=== PATIENT | male | born 1970 | race Caucasian/White ===

== ENCOUNTER 2017-11-07 13:35 | Outpatient (CLI) | payer MEDICARE, MEDICAID ==
[~2017-11-07 13:35] MED LIST: AMYL1CAP55 PO; CLON-529 PO; FAMO40TA73 PO; FOLI0.4T2 PO; GABA-532 PO; METO-292 PO; MILK140C PO; NOVRI IV; ROPI1TAB2 PO; ROPI1TAB4 PO; SODI650T29 PO; SPIR25TA3 PO; THIA100T70 PO
== END 2017-11-07 23:59 | disposition home or self-care (01) ==
LOC: 64 CT 13:35
PROVIDERS: ATTEND Nurse Practitioner Family
DX: I10 Essential (primary) hypertension (principal); E11.9 Type 2 diabetes mellitus without complications; F17.200 Nicotine dependence, unspecified, uncomplicated; Z91.89 Other specified personal risk factors, not elsewhere classified
CPT/HCPCS: 70450

== ENCOUNTER 2021-05-03 10:17 | Emergency (ER) | payer MEDICARE, MEDICAID ==
[~2021-05-03] VITALS: Ht 177.8 cm; Wt 61.4 kg
[~2021-05-03 10:17] MED LIST changes: -FOLI0.4T2 PO; +FOLI0.4T6 PO; +MILK THISTLE140 M1 PO; -MILK140C PO; -ROPI1TAB4 PO; +ROPI1TAB6 PO; -SPIR25TA3 PO; +SPIR25TA5 PO
[2021-05-03] MEDS ORDERED: ketorolac tromethamine 15mg/ml inj. IM ONE (10:35)
[2021-05-03] MEDS ORDERED: HYDROcodone/acetaminophen 10/325mg tab PO ONE (10:35)
[2021-05-03] MEDS ORDERED: OXYC-145 PO (11:14)
[2021-05-03 12:15] VITALS: BP 134/83
== END 2021-05-03 12:17 | disposition home or self-care (01) ==
LOC: ER 10:17
DX: M54.41 Lumbago with sciatica, right side (principal); I10 Essential (primary) hypertension; J44.9 Chronic obstructive pulmonary disease, unspecified; G89.29 Other chronic pain; Z87.01 Personal history of pneumonia (recurrent); Z86.19 Personal history of other infectious and parasitic diseases; Z72.89 Other problems related to lifestyle; Z56.0 Unemployment, unspecified; Z79.899 Other long term (current) drug therapy; Z88.5 Allergy status to narcotic agent; Z79.4 Long term (current) use of insulin
CPT/HCPCS: 96372; 99283; J1885

== ENCOUNTER 2023-07-19 19:11 | Inpatient (IN) | payer MEDICARE, MEDICAID ==
[~2023-07-19] VITALS: Ht 175.3 cm; Wt 67.5 kg
[~2023-07-19 19:11] MED LIST changes: +OXYC-145 PO; +ROPI1TAB47 PO; -ROPI1TAB6 PO
[2023-07-19] MEDS ORDERED: ringers solution, lacted 1,000 ML IV ONE ×2 (20:10→20:35)
--- NOTE | 2023-07-19 21:19 | NUR ---
temp sensing michael started, pt in a eleazar huggar. VSS. warm fluid initiated, pt connected to tele monitor.
--- NOTE | 2023-07-19 21:20 | NUR ---
POC 90
[2023-07-19 21:24] LABS: URINE AMPHETAMINE SCREEN NEGATIVE (Neg); URINE BARBITUATE SCREEN NEGATIVE (Neg); URINE BENZODIAZEPINES SCREEN NEGATIVE (Neg); URINE CANNABINOID SCREEN NEGATIVE (Neg); URINE COCAINE SCREEN NEGATIVE (Neg); URINE METHADONE SCREEN NEGATIVE (Neg); URINE OPIATE SCREEN NEGATIVE (Neg); URINE PHENCYCLIDINE SCREEN NEGATIVE (Neg)
--- NOTE | 2023-07-19 21:27 | NUR ---
warm fluids complete, BP wnl
--- NOTE | 2023-07-19 21:28 | NUR ---
Per MD, BP goal above 90/60 or/and MAP 65
[2023-07-19] MEDS ORDERED: Dextrose 10%-water IV solution 1,000 ML IV SCH (21:40)
[2023-07-19 21:43] LABS: APTT 46 SECONDS (22-32); BASOPHILS # (AUTO) 0.1 X10'3 (0-0.2); BASOPHILS % (AUTO) 0.5 % (0-1); EOSINOPHILS # (AUTO) 0.1 X10'3 (0-0.9); EOSINOPHILS % (AUTO) 0.6 % (0-6); HEMATOCRIT 23.2 % (42.0-52.0); HEMOGLOBIN 7.4 g/dl (14.0-17.9); INR 1.3 INR; LYMPHOCYTES % (AUTO) 4.6 % (21-51); MEAN CORPUSCULAR HEMOGLOBIN 30.1 PG (27.0-31.0); MEAN CORPUSCULAR VOLUME 93.8 FL (78-98); MEAN PLATELET VOLUME 8.9 FL (7.4-10.4); MONOCYTES # (AUTO) 1.2 X10'3 (0-0.9); MONOCYTES % (AUTO) 5.4 % (2-12); NEUTROPHILS # (AUTO) 19.8 X10'3 (1.8-7.7); NEUTROPHILS % (AUTO) 88.9 % (42-75); PLATELET COUNT 320 X10'3 (140-440); PROTHROMBIN TIME 13.3 SECONDS (9.0-12.0); RED BLOOD COUNT 2.47 X10'6 (4.70-6.10); RED CELL DISTRIBUTION WIDTH 13.5 % (11.5-14.5); WHITE BLOOD COUNT 22.2 X10'3 (4.5-11.0)
[2023-07-19 21:50] LABS: ALANINE AMINOTRANSFERASE 13 U/L (12-78); ALBUMIN/GLOBULIN RATIO 0.5 (1.1-1.5); ALKALINE PHOSPHATASE 157 IU/L (46-116); ANION GAP 18 (8-16); ASPARTATE AMINO TRANSFERASE 28 U/L (10-37); BILIRUBIN,TOTAL 0.2 MG/DL (0.1-1.0); BLOOD UREA NITROGEN 92 MG/DL (7-18); BUN/CREATININE RATIO 11.9 (10.0-20.0); CALCIUM 7.8 MG/DL (8.5-10.1); CHLORIDE 104 MMOL/L (99-107); ETHANOL < 10 MG/DL (<10); GLUCOSE 97 MG/DL (70-104); POTASSIUM 4.2 MMOL/L (3.5-5.1); SODIUM 131 MMOL/L (135-145); eCRCL 9 ML/MIN; eGFR 7 ML/MIN
[2023-07-19] MEDS ORDERED: ringers solution, lactated 1000ml IV soln IV ONE (22:30)
[2023-07-19 22:37] LABS: ABG BASE EXCESS -19.1 mmol/L (-2.0-2.0); ABG OXYGEN SATURATION 88.6 % (94-97); ABG PCO2 (T) 22.9 mmHg (35.0-48.0); ALLEN'S TEST Modified; FCOHb 0.2 % (0.0-3.9); FHHb 11.3 % (0.0-5.0); FMetHb 0.3 % (0.0-1.5); FO2Hb 88.2 % (94-97); PATIENT TEMPERATURE 36.5; TOTAL HEMOGLOBIN 8.1 G/dl (14.0-17.9)
[2023-07-19] MEDS ORDERED: sodium bicarbonate (8.4%) 1 mEq/ml syringe IV ONE (23:00)
[2023-07-19] MEDS ORDERED: NORepinephrine 8mg/ 250ml NS 250 ML IV ONE (23:30)
[2023-07-20] MEDS ORDERED: sodium bicarbonate (8.4%) inj. 150 MEQ in dextrose 5%-water 1,000 ML IV SCH (00:35)
[2023-07-20 00:42] LABS: PLATELET ESTIMATE NORMAL; TOTAL CELLS COUNTED 100
[2023-07-20 00:46] LABS: SALICYLATE 2.1 MG/DL (4.0-20.0)
[2023-07-20 00:56] LABS: ACETAMINOPHEN < 2.0 UG/ML (10-30); OSMOLALITY 310 MOSM/K (280-300)
[2023-07-20] MEDS ORDERED: iohexol 300mg/ml 100ml inj. ONE (01:03)
[2023-07-20 04:43] LABS: BILIRUBIN,URINE NEGATIVE (Neg); CLARITY,URINE SLIGHTLY CLOUDY (Clear); COLOR,URINE STRAW (Yellow); GLUCOSE, URINE 100 mg/dl (Neg); KETONES,URINE NEGATIVE (Neg); LEUKOCYTE ESTERASE ,URINE TRACE (Neg); NITRITES, URINE NEGATIVE (Neg); OCCULT BLOOD,URINE MODERATE (Neg); PROTEIN,URINE 30 mg/dl (Neg); UROBILINOGEN,URINE 0.2 E.U/dL (0.2-1.0)
[2023-07-20 04:49] LABS: UA COLLECTION TYPE NON-SPECIFIED
[2023-07-20 04:52] LABS: ALBUMIN 1.8 G/DL (3.4-5.0); ANION GAP 19 (8-16); BLOOD UREA NITROGEN 89 MG/DL (7-18); BUN/CREATININE RATIO 11.5 (10.0-20.0); CALCIUM 7.3 MG/DL (8.5-10.1); CHLORIDE 99 MMOL/L (99-107); CREATININE 7.76 MG/DL (0.60-1.10); GLUCOSE 295 MG/DL (70-104); POTASSIUM 3.7 MMOL/L (3.5-5.1); SODIUM 129 MMOL/L (135-145); eCRCL 8 ML/MIN; eGFR 7 ML/MIN
[2023-07-20 04:52] LABS: BACTERIA,URINE FEW /HPF (Neg)
[2023-07-20 04:53] LABS: HYALINE CASTS 0-3 /LPF (NEGATIVE); MUCUS STRANDS NONE SEEN /LPF (Neg); RENAL CELLS, URINE FEW /HPF; SQUAMOUS EPITHELIAL CELL,UR FEW /LPF (FEW); TRANSITIONAL EPI CELLS,URINE FEW /HPF
[2023-07-20 04:54] LABS: WBC,URINE 0-4 /HPF (0-4)
[2023-07-20 04:58] LABS: TOTAL CARBON DIOXIDE 11.4 MMOL/L (24-32)
--- NOTE | 2023-07-20 05:19 | NUR ---
BiCarb lowered to 75 mL/hr and D10 stopped per MD Fernandez per tele phone.
[2023-07-20] MEDS: sodium bicarbonate (8.4%) inj. 150 MEQ in dextrose 5%-water 1,000 ML IV SCH ×3 (05:30→15:58)
--- NOTE | 2023-07-20 06:26 | NUR ---
pt sister Christi called, she requested an update on the patient, rishabh segundo informed her that the RN was currently in the middle of report but that the RN would be informed and her number would be placed in the chart to be called back. Christi:
[2023-07-20] MEDS ORDERED: levoFLOXACIN-Levaquin 250mg/D5 50 ML IV ONE (08:00)
[2023-07-20] MEDS ORDERED: succinylcholine 20mg/ml inj IV ONE (08:00)
[2023-07-20] MEDS ORDERED: etomidate 2mg/ml inj. ONE (08:00)
[2023-07-20] MEDS ORDERED: normal saline 1000ml 1,000 ML IV SCH (08:00)
[2023-07-20] MEDS ORDERED: mag hydrox/Alum hydrox/simeth 30ml oral suspension PO PRN (08:30)
[2023-07-20] MEDS ORDERED: magnesium Cl slow-release 64mg tablet PO PRN (08:30)
[2023-07-20] MEDS ORDERED: magnesium hydroxide 30ml (MOM) UD suspension PO PRN (08:30)
[2023-07-20] MEDS ORDERED: magnesium 2GM in 50ml NS 50 ML IV PRN (08:30)
[2023-07-20] MEDS ORDERED: ondansetron/PF 4mg/2ml inj IV PRN (08:30)
[2023-07-20] MEDS ORDERED: acetaminophen 325mg tablet PO PRN ×2 (08:30)
[2023-07-20] MEDS ORDERED: potassium Cl 20 mEq SR tablet PO PRN ×2 (08:30)
[2023-07-20] MEDS ORDERED: vancomycin/NS 1 GM ADD-VANTAGE 250 ML X 1 DOSE IV ONE (08:30)
[2023-07-20] MEDS ORDERED: magnesium 4gm in 100ml NS 100 ML IV PRN (08:30)
[2023-07-20] MEDS ORDERED: vancomycin/NS 1 GM ADD-VANTAGE 250 ML X 1 DOSE IV PRN (08:55)
--- NOTE | 2023-07-20 09:59 | NUR ---
SISTER PARK CALLED AGAIN TO TALK TO RN ABOUT PT, RN INFORMED, CAMERON TOLD SISTER THE RN WOULD HAVE TO CALL BACK SHE IS BUSY.
--- NOTE | 2023-07-20 10:17 | NUR ---
Received order for consult. Met with patient in regards to substance use and to see if patient is interested in resources for treatment options. Patient uses meth every once in a while and knows that it's not good. Patient is going to find different coping skills when depressed. Patient declined other resources at this time.
[2023-07-20] MEDS: piperacillin/tazo 4.5gm/100ml 100 ML IV SCH ×3 (10:37→19:17)
--- NOTE | 2023-07-20 11:15 | NUR ---
pt mother at bedside conversing with patient.
--- NOTE | 2023-07-20 12:00 | NUR ---
pt mother at bedside. pt eating lunch. 2l nc o2 sat at 95%
[2023-07-20] MEDS ORDERED: DEXTROSE 15 GM of carb/4 tabs (each vial/BOTTLE has 4 tablets) PO PRN ×2 (12:30)
[2023-07-20] MEDS ORDERED: dextrose 50%-water 50ml dispensing syringe IV PRN ×2 (12:30)
[2023-07-20] MEDS ORDERED: MESSAGE TO PHARMACY PO ONE (12:30)
[2023-07-20] MEDS ORDERED: glucagon, human recombinant 1mg kit SUBCUT PRN (12:30)
--- NOTE | 2023-07-20 12:57 | NUR ---
sister randy called again, RN notified.
[2023-07-20 13:27] LABS: ALBUMIN 1.9 G/DL (3.4-5.0); ANION GAP 16 (8-16); BLOOD UREA NITROGEN 87 MG/DL (7-18); BUN/CREATININE RATIO 11.2 (10.0-20.0); CALCIUM 7.1 MG/DL (8.5-10.1); CHLORIDE 99 MMOL/L (99-107); GLUCOSE 347 MG/DL (70-104); SODIUM 129 MMOL/L (135-145); eCRCL 8 ML/MIN; eGFR 7 ML/MIN
[2023-07-20 13:31] LABS: CREATINE KINASE 324 U/L (39-308); PHOSPHORUS 8.1 MG/DL (2.3-4.5)
[2023-07-20 13:39] LABS: TOTAL CARBON DIOXIDE 13.6 MMOL/L (24-32)
--- NOTE | 2023-07-20 13:48 | NUR ---
Dr. Delphine Miranda notified of pt critical ECO2 of 13.1. no new orders given.
[2023-07-20 14:10] LABS: C DIFF ANTIGEN NEGATIVE (NEGATIVE); C DIFF SPECIMEN=DIARRHEA? ACCEPTABLE; C DIFFICILE TOXINS A&B NEGATIVE (Neg)
[2023-07-20] MEDS: insulin Lispro (HumaLOG) vial - multi-dose SQ SCH (14:30)
--- NOTE | 2023-07-20 16:41 | NUR ---
PT HAS HAD 4 EPISODES OF WATERY STOOLS. PT REPORTS THAT THIS HAS BEEN ONGOING FOR MONTHS. STOOL WAS TESTED AND IS NEGATIVE FOR C-DIFF. PT CURRENTLY RESTING IN BED ON 2L NC O2 SAT AT 94%. BICARB IS INFUSING AT 75ML/HR.
--- NOTE | 2023-07-20 17:55 | NUR ---
contacted dr buck nunez about pt eco2 and that an abg has not been ran since yesterday. ordered for abg and said to continue on the 2l nc.
[2023-07-20 18:48] LABS: ABG HCO3 12.7 mmol/L (22.0-26.0); ABG OXYGEN SATURATION 91.8 % (94-97); ABG PCO2 (T) 24.7 mmHg (35.0-48.0); ABG PH (T) 7.328 (7.340-7.440); ABG PO2 (T) 65.2 mmHg (75.0-100.0); FCOHb 0.2 % (0.0-3.9); FHHb 8.2 % (0.0-5.0); FLOW 2 L/min; FMetHb 0.3 % (0.0-1.5); FO2Hb 91.3 % (94-97); MODE NASAL CANNULA; PATIENT TEMPERATURE 37.2; TOTAL HEMOGLOBIN 7.6 G/dl (14.0-17.9)
[2023-07-20] MEDS ORDERED: haloperidol 5mg tablet PO PRN (19:15)
[2023-07-20] MEDS ORDERED: haloperidol lactate 5mg/ml inj IM PRN (19:15)
[2023-07-20] MEDS ORDERED: UNABLE TO OBTAIN (19:23)
[2023-07-20] MEDS: K and/or MAG REPLACEMENT MC SCH (20:51)
[2023-07-20] MEDS: heparin, porcine 5000 units/ml vial SQ SCH (21:16)
[2023-07-20] MEDS: thiamine 100mg/ml 2ml inj. IV SCH (21:18)
[2023-07-20] MEDS: insulin glargine (Lantus) pen - multi-dose SQ SCH (21:18)
[2023-07-21] MEDS: sodium bicarbonate (8.4%) inj. 150 MEQ in dextrose 5%-water 1,000 ML IV SCH ×3 (00:16→22:13)
[2023-07-21] MEDS: piperacillin/tazo 4.5gm/100ml 100 ML IV SCH ×4 (00:20→23:54)
[2023-07-21] MEDS ORDERED: acetaminophen 325mg tablet PO STA (00:44)
[2023-07-21] MEDS: VANCOMYCIN LEVEL IV SCH (05:39)
[2023-07-21] MEDS ORDERED: furosemide 20 MG/2 ML vial IV ONE (06:30)
[2023-07-21] MEDS: K and/or MAG REPLACEMENT MC SCH ×2 (07:07→20:00)
[2023-07-21] MEDS: folic acid 1mg/0.2ml inj IV SCH (07:25)
[2023-07-21] MEDS: thiamine 100mg/ml 2ml inj. IV SCH ×3 (07:25→20:34)
[2023-07-21] MEDS: heparin, porcine 5000 units/ml vial SQ SCH ×2 (07:25→20:33)
[2023-07-21] MEDS: multivitamins, therapeutics tablet PO SCH (07:26)
[2023-07-21 08:04] LABS: ABG BASE EXCESS -11.6 mmol/L (-2.0-2.0); ABG HCO3 12.8 mmol/L (22.0-26.0); ABG OXYGEN SATURATION 92.1 % (94-97); ABG PCO2 (T) 23.8 mmHg (35.0-48.0); ABG PH (T) 7.348 (7.340-7.440); ABG PO2 (T) 67.5 mmHg (75.0-100.0); ALLEN'S TEST POSITIVE; FCOHb 0.3 % (0.0-3.9); FHHb 7.9 % (0.0-5.0); FLOW 7 L/min; FMetHb 0.1 % (0.0-1.5); FO2Hb 91.7 % (94-97); MODE MASK - NRB; TOTAL HEMOGLOBIN 7.6 G/dl (14.0-17.9)
[2023-07-21] MEDS: insulin Lispro (HumaLOG) vial - multi-dose SQ SCH (08:49)
--- NOTE | 2023-07-21 09:00 | NUR ---
at bedside with patient, multiple episodes of diarrhea during linen change.
[2023-07-21] MEDS: LORazepam 2 mg/ml vial IV PRN ×3 (09:06→20:34)
--- NOTE | 2023-07-21 09:10 | NUR ---
hospitalist at bedside with resident.
[2023-07-21 09:24] LABS: BASOPHILS # (AUTO) 0.1 X10'3 (0-0.2); BASOPHILS % (AUTO) 0.5 % (0-1); EOSINOPHILS # (AUTO) 0.1 X10'3 (0-0.9); EOSINOPHILS % (AUTO) 0.5 % (0-6); HEMOGLOBIN 7.1 g/dl (14.0-17.9); LYMPHOCYTES # (AUTO) 0.7 X10'3 (1.1-4.8); LYMPHOCYTES % (AUTO) 2.8 % (21-51); MEAN CORPUSCULAR HGB CONC 32.5 g/dL (33.0-36.5); MEAN CORPUSCULAR VOLUME 89.4 FL (78-98); MEAN PLATELET VOLUME 9.5 FL (7.4-10.4); MONOCYTES # (AUTO) 1.4 X10'3 (0-0.9); MONOCYTES % (AUTO) 5.6 % (2-12); NEUTROPHILS # (AUTO) 23.4 X10'3 (1.8-7.7); NEUTROPHILS % (AUTO) 90.6 % (42-75); PLATELET COUNT 349 X10'3 (140-440); RED BLOOD COUNT 2.45 X10'6 (4.70-6.10); RED CELL DISTRIBUTION WIDTH 12.9 % (11.5-14.5)
--- NOTE | 2023-07-21 09:37 | NUR ---
PT PLACED ON CPAP BY RESPIRATORY THERAPIST.
[2023-07-21 09:38] VITALS: PULSE 90; RESP 25; O2SAT 97
[2023-07-21 09:41] LABS: INR 1.6 INR; PROTHROMBIN TIME 16.3 SECONDS (9.0-12.0)
[2023-07-21 09:48] LABS: ALBUMIN 1.6 G/DL (3.4-5.0); ANION GAP 22 (8-16); BLOOD UREA NITROGEN 86 MG/DL (7-18); BUN/CREATININE RATIO 11.6 (10.0-20.0); CALCIUM 6.9 MG/DL (8.5-10.1); CHLORIDE 98 MMOL/L (99-107); CREATININE 7.42 MG/DL (0.60-1.10); GLUCOSE 248 MG/DL (70-104); POTASSIUM 3.6 MMOL/L (3.5-5.1); SODIUM 132 MMOL/L (135-145); eCRCL 9 ML/MIN; eGFR 8 ML/MIN
[2023-07-21 09:53] LABS: TOTAL CARBON DIOXIDE 12.5 MMOL/L (24-32)
[2023-07-21 09:55] LABS: HEMATOCRIT 21.9 % (42.0-52.0); WHITE BLOOD COUNT 25.8 X10'3 (4.5-11.0)
--- NOTE | 2023-07-21 10:10 | NUR ---
Multiple episodes of diarrhea while cleaning and repositioning patient.
[2023-07-21 10:12] LABS: ALBUMIN 1.7 G/DL (3.4-5.0); AMYLASE 42 U/L (25-115); ANION GAP 20 (8-16); BLOOD UREA NITROGEN 87 MG/DL (7-18); BUN/CREATININE RATIO 11.6 (10.0-20.0); CALCIUM 6.9 MG/DL (8.5-10.1); CHLORIDE 99 MMOL/L (99-107); CHOL/HDL RATIO 2.2 (0.00-4.99); CHOLESTEROL 78 MG/DL (0-200); CREATININE 7.52 MG/DL (0.60-1.10); GLUCOSE 252 MG/DL (70-104); HDL CHOLESTEROL 35 MG/DL (35-60); LACTATE DEHYDROGENASE 310 U/L (85-227); LDL CHOLESTEROL 36 MG/DL (50-100); LIPASE 9 U/L (16-77); MAGNESIUM 1.5 MG/DL (1.5-2.4); PHOSPHORUS 7.6 MG/DL (2.3-4.5); POTASSIUM 3.6 MMOL/L (3.5-5.1); SODIUM 132 MMOL/L (135-145); TRIGLYCERIDES 59 MG/DL (20-135); VANCOMYCIN,RANDOM 15.4 ug/mL (20.0-30.0); eCRCL 9 ML/MIN; eGFR 8 ML/MIN
[2023-07-21 10:17] LABS: TOTAL CARBON DIOXIDE 12.6 MMOL/L (24-32)
[2023-07-21 10:52] LABS: PLATELET ESTIMATE NORMAL; TOTAL CELLS COUNTED 100
--- NOTE | 2023-07-21 11:12 | NUR ---
Respiratory at bedside, pt failed venturi mask trial desatting into mid 80s per RT. RT to contact MD. Pt remains on CPAP.
--- NOTE | 2023-07-21 11:13 | NUR ---
Attempted to place pt on Venturi mask per Dr. Case's request. pt immediately desaturated to 83-85%. Pt placed back on CPAP 10 at 60%. RNHenny notified, will also speak with Dr. Case.
--- NOTE | 2023-07-21 12:00 | NUR ---
Pt cleaned and repositions, continues with diarrhea episodes.
--- NOTE | 2023-07-21 13:00 | NUR ---
contacted dr. ford regarding patients labs
--- NOTE | 2023-07-21 13:10 | NUR ---
contacted dr. parther regarding pt condition.
[2023-07-21 14:00] VITALS: PULSE 94; RESP 24; O2SAT 98
--- NOTE | 2023-07-21 14:56 | NUR ---
Contacted resident hospitalist, attending hospitalist, packing machine tender, and ICU rush seater regarding patients condition, reviewed updated hospitalist progress note. No new orders received.
[2023-07-21 18:35] VITALS: PULSE 97; RESP 26; O2SAT 94
--- NOTE | 2023-07-21 19:17 | NUR ---
RT paged, patient on BiPap, SPO2 88%, RT at bedside to assist
--- NOTE | 2023-07-21 19:38 | NUR ---
Called and spoke with Dr. Navarrete re: patient's worsening labs and condition. Provider verbalized understanding, states he will further review his chart and place orders.
[2023-07-21 20:45] LABS: ABG BASE EXCESS -10.5 mmol/L (-2.0-2.0); ABG HCO3 14.1 mmol/L (22.0-26.0); ABG OXYGEN SATURATION 91.3 % (94-97); ABG PO2 (T) 61.1 mmHg (75.0-100.0); ALLEN'S TEST Modified; FCOHb 0.3 % (0.0-3.9); FHHb 8.7 % (0.0-5.0); FMetHb 0.1 % (0.0-1.5); FO2Hb 90.9 % (94-97); MODE Cpap; PATIENT TEMPERATURE 36.6; TOTAL HEMOGLOBIN 7.7 G/dl (14.0-17.9)
[2023-07-21] MEDS: insulin glargine (Lantus) pen - multi-dose SQ SCH (21:00)
[2023-07-21] MEDS ORDERED: etomidate 2mg/ml inj. IV ONE (21:25)
[2023-07-21] MEDS ORDERED: succinylcholine 20mg/ml inj IV ONE (21:25)
--- NOTE | 2023-07-21 21:33 | NUR ---
ED MD, RT, medical office supervisor, Primary RN at bedside for intubation. 2135: Time out performed 2136: Etomidate 20 mg administered 8: Succ 100mg administered 2138: Propofol started per order 2139: Patient intubated by MD with ET tube size: 8 with 23 at the teeth positive lung sounds and color change, ET secured 2140: HR: 105, RR: 12, Temp: 36.5, BP: 129/84 2143: 16 Fr OG placed confirmed with auscultation and gastric contents 2145: ICU MD on video call with staff 2149: CXR completed for confirmation of placement of ET tube
[2023-07-21] MEDS ORDERED: ipratropium/albuterol 3ml nebule NEB PRN (21:50)
[2023-07-21] MEDS: propofol 1000mg/100ml bottle 100 ML IV SCH (21:50)
[2023-07-21] MEDS ORDERED: acetaminophen 325mg tablet PO PRN ×2 (21:50)
[2023-07-21] MEDS ORDERED: ondansetron/PF 4mg/2ml inj IV PRN (21:50)
[2023-07-21 22:14] VITALS: BP 117/65; PULSE 98; RESP 29; O2SAT 92
--- NOTE | 2023-07-21 22:44 | NUR ---
Called and updated mother of patient's recent changes and current condition. Mother verbalized understanding.
[2023-07-21 22:50] LABS: ABG BASE EXCESS -9.5 mmol/L (-2.0-2.0); ABG HCO3 15.8 mmol/L (22.0-26.0); ABG OXYGEN SATURATION 90.1 % (94-97); ABG PCO2 (T) 30.6 mmHg (35.0-48.0); ABG PH (T) 7.325 (7.340-7.440); ABG PO2 (T) 57.6 mmHg (75.0-100.0); ALLEN'S TEST Modified; FCOHb 0.4 % (0.0-3.9); FHHb 9.8 % (0.0-5.0); FMetHb 0.3 % (0.0-1.5); FO2Hb 89.5 % (94-97); PEEP 7 cm H2O; RESPIRATORY RATE 16 b/min; TIDAL VOLUME 450 mL; TOTAL HEMOGLOBIN 7.9 G/dl (14.0-17.9)
[2023-07-22] VITALS (33 sets, daily range): BP systolic 85–151; BP diastolic 49–83; PULSE 79–96; RESP 18–28; O2SAT 90–98
[2023-07-22] MEDS ORDERED: ringers solution, lactated 500ml IV solution IV ONE (00:05)
--- NOTE | 2023-07-22 00:06 | NUR ---
Called Dr. Fairchild re: hypotension, verbalized understanding, new orders received.
[2023-07-22] MEDS: NORepinephrine 8mg/ 250ml NS 250 ML IV SCH (00:28)
--- NOTE | 2023-07-22 00:35 | NUR ---
Attempted to call report, ICU unable to take patient without central line due to Levophed being infused. Discussed with welfare service aide, verbalized understanding.
[2023-07-22 00:40] LABS: ABG BASE EXCESS -9.7 mmol/L (-2.0-2.0); ABG HCO3 14.9 mmol/L (22.0-26.0); ABG OXYGEN SATURATION 89.5 % (94-97); ABG PH (T) 7.357 (7.340-7.440); ABG PO2 (T) 56.4 mmHg (75.0-100.0); ALLEN'S TEST Modified; FCOHb 0.3 % (0.0-3.9); FHHb 10.4 % (0.0-5.0); FMetHb 0.3 % (0.0-1.5); MODE VENT-AC/VC; PATIENT TEMPERATURE 36.5; PEEP 5 cm H2O; RESPIRATORY RATE 16 b/min; TIDAL VOLUME 450 mL; TOTAL HEMOGLOBIN 7.2 G/dl (14.0-17.9)
--- NOTE | 2023-07-22 01:53 | NUR ---
I received report from Nettie WHITTAKER RN
[2023-07-22] MEDS: VANCOMYCIN LEVEL IV SCH (03:00)
[2023-07-22 03:25] LABS: ABG BASE EXCESS -7.1 mmol/L (-2.0-2.0); ABG HCO3 17.1 mmol/L (22.0-26.0); ABG OXYGEN SATURATION 98.2 % (94-97); ABG PCO2 (T) 27.4 mmHg (35.0-48.0); ABG PH (T) 7.409 (7.340-7.440); ABG PO2 (T) 106.5 mmHg (75.0-100.0); ALLEN'S TEST Modified; FCOHb 0.5 % (0.0-3.9); FHHb 1.8 % (0.0-5.0); FMetHb 0.3 % (0.0-1.5); FO2Hb 97.4 % (94-97); PATIENT TEMPERATURE 36.1; PEEP 10 cm H2O; RESPIRATORY RATE 16 b/min; TIDAL VOLUME 450 mL; TOTAL HEMOGLOBIN 6.6 G/dl (14.0-17.9)
[2023-07-22 03:28] LABS: BASOPHILS % (AUTO) 0.1 % (0-1); EOSINOPHILS # (AUTO) 0.1 X10'3 (0-0.9); EOSINOPHILS % (AUTO) 0.4 % (0-6); LYMPHOCYTES # (AUTO) 0.5 X10'3 (1.1-4.8); LYMPHOCYTES % (AUTO) 1.4 % (21-51); MEAN CORPUSCULAR HEMOGLOBIN 29.1 PG (27.0-31.0); MEAN CORPUSCULAR HGB CONC 32.7 g/dL (33.0-36.5); MEAN CORPUSCULAR VOLUME 89.2 FL (78-98); MEAN PLATELET VOLUME 9.3 FL (7.4-10.4); MONOCYTES # (AUTO) 1.1 X10'3 (0-0.9); MONOCYTES % (AUTO) 3.5 % (2-12); NEUTROPHILS # (AUTO) 31.2 X10'3 (1.8-7.7); NEUTROPHILS % (AUTO) 94.6 % (42-75); PLATELET COUNT 331 X10'3 (140-440); RED BLOOD COUNT 2.18 X10'6 (4.70-6.10); RED CELL DISTRIBUTION WIDTH 12.7 % (11.5-14.5)
[2023-07-22 03:35] LABS: INR 1.6 INR
--- NOTE | 2023-07-22 03:44 | NUR ---
spoke to Dr. Fernandez regarding pts wbw 33 Hgb 6.4, Hct 19.5 new orders to cross and type 2 units of prbc however only give the prbc with hemodialysis
[2023-07-22 03:45] LABS: ALBUMIN 1.4 G/DL (3.4-5.0); AMYLASE 45 U/L (25-115); ANION GAP 20 (8-16); BLOOD UREA NITROGEN 84 MG/DL (7-18); BUN/CREATININE RATIO 11.9 (10.0-20.0); CALCIUM 6.5 MG/DL (8.5-10.1); CHLORIDE 97 MMOL/L (99-107); CREATINE KINASE 160 U/L (39-308); CREATININE 7.03 MG/DL (0.60-1.10); GLUCOSE 148 MG/DL (70-104); LIPASE 6 U/L (16-77); MAGNESIUM 1.2 MG/DL (1.5-2.4); PHOSPHORUS 8.2 MG/DL (2.3-4.5); SODIUM 134 MMOL/L (135-145); TOTAL CARBON DIOXIDE 16.8 MMOL/L (24-32); TRIGLYCERIDES 66 MG/DL (20-135); URIC ACID 4.7 MG/DL (3.5-7.2); VANCOMYCIN,RANDOM 13.6 ug/mL (20.0-30.0); eCRCL 10 ML/MIN; eGFR 8 ML/MIN
[2023-07-22 03:51] LABS: POTASSIUM 2.7 MMOL/L (3.5-5.1); PROTHROMBIN TIME 16.9 SECONDS (9.0-12.0)
[2023-07-22] MEDS: potassium Cl 40MEQ/1/2NS 520ml 520 ML IV PRN ×2 (05:24→20:38)
--- NOTE | 2023-07-22 05:27 | NUR ---
spoke to dr Rebecca calix to replace potassium level of 2.7
[2023-07-22] MEDS ORDERED: ringers solution, lacted 1,000 ML IV ONE ×2 (06:55)
[2023-07-22] MEDS ORDERED: furosemide 10 MG/1 ML 10ml inj IV ONE (07:05)
[2023-07-22] MEDS: folic acid 1mg/0.2ml inj IV SCH (07:28)
[2023-07-22] MEDS: methylPREDNISolone sod succ 125mg/2ml vial IV SCH ×3 (07:28→20:15)
[2023-07-22] MEDS: thiamine 100mg/ml 2ml inj. IV SCH ×3 (07:28→20:15)
[2023-07-22] MEDS: heparin, porcine 5000 units/ml vial SQ SCH ×2 (07:29→20:16)
[2023-07-22] MEDS: multivitamins, therapeutics tablet PO SCH (07:50)
[2023-07-22] MEDS: K and/or MAG REPLACEMENT MC SCH ×2 (08:00→20:00)
[2023-07-22] MEDS ORDERED: pantoprazole 40MG/NS 100ML BAG 100 ML IV SCH (08:00)
[2023-07-22] MEDS: sodium bicarbonate (8.4%) inj. 150 MEQ in dextrose 5%-water 1,000 ML IV SCH ×2 (08:21→19:09)
[2023-07-22] MEDS: FENTANYL-0.9 % NACL/PF 100 ML IV PRN ×3 (08:40→21:31)
[2023-07-22 11:01] LABS: COMPLEMENT C3, SERUM 105 mg/dL (82-167); COMPLEMENT C4, SERUM 28 mg/dL (12-38)
[2023-07-22] MEDS: piperacillin/tazo 4.5gm/100ml 100 ML IV SCH ×2 (11:20→17:23)
[2023-07-22 11:47] LABS: BILIRUBIN,URINE NEGATIVE (Neg); CLARITY,URINE CLOUDY (Clear); COLOR,URINE YELLOW (Yellow); GLUCOSE, URINE NEGATIVE (Neg); KETONES,URINE NEGATIVE (Neg); LEUKOCYTE ESTERASE ,URINE SMALL (Neg); NITRITES, URINE NEGATIVE (Neg); OCCULT BLOOD,URINE MODERATE (Neg); PH,URINE 5.5 (4.8-8.0); PROTEIN,URINE TRACE mg/dl (Neg); UA COLLECTION TYPE FOLEY CATH; UROBILINOGEN,URINE 0.2 E.U/dL (0.2-1.0)
[2023-07-22 11:58] LABS: BACTERIA,URINE FEW /HPF (Neg); MUCUS STRANDS FEW /LPF (Neg); SQUAMOUS EPITHELIAL CELL,UR FEW /LPF (FEW); WBC CLUMPS,URINE FEW /HPF (NEGATIVE)
[2023-07-22 11:59] LABS: COARSE GRANULAR CAST 0-3 /LPF (NEGATIVE)
--- NOTE | 2023-07-22 12:05 | NUR ---
Malnutrition/TF consults: Pt admit for septic shock, DKA, PNA, and GIL and ultimately intubated d/t worsening hypoxemia. Propofol visualized at bedside to be running at 6.48 mL/hr providing 171 kcal/day, TF recs adjusted appropriately, see below. Information was obtained by patient's sister and mother at bedside d/t pt being intubated and sedated. Per family pt weighed 118 lbs two weeks ago at a doctors visit and pt is normally a thin caleb. Unsure of UBW though sister states pt possibly had increased weight loss over the last six months. 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 Per family patients PO intake is "hit and miss" and pt is not a big eater as pt eats slow and occasionally does not eat the food that is prepared by his mother whom he lives with though pt does occasionally drink an Ensure. Current bed scaled wt is 130 lbs with first standing scaled wt this admit being 121 lbs. Standing scaled weight is +3 lbs since reported scaled weight two weeks ago. Despite this pt with signs of muscle and fat wasting at bilateral temples, clavicles, and shoulders-this is not patients usual appearance per family. Per family pt has issues with chronic diarrhea with liquid stool and pt was prescribed an antidiarrheal though it was not effective. Family is unaware of if pt has any GI PMH such as UC, Crohn's, etc. 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 Pt meets criteria for severe malnutrition. Per family pt takes insulin for DM management however pt likes his blood sugars around 400 mg/dL and will not treat this high of a blood sugar. Mother states patient has a glucometer though it accidentally got put in the washing machine. RD informed family of OTC glucometer and encouraged to f/u with PCP and CM. RD also discussed consequences of poor blood sugar control as well as recommendation for consistent PO intake to assist with DM management. BG 72 mg/dL on admit with no A1c, physician agrees to obtain an A1c this admit, d/w RN. Information obtained from family was d/w bedside RN. All of patients questions were answered at this time. ONS coupons and RD contact information provided and family encouraged to reach out if needed. LBM 07/22, documented as diarrhea. Per EMR pt with a low Marbin of 11, no edema and skin is intact per EMR and d/w RN. Will continue to follow closely. Recommendations: 1) Given Propofol at 6.48 mL/hr (171 kcal/day), continuous Pivot 1.5 with 55 mL/hr goal rate to provide 1320 mL total volume/day, 1980 kcal, 124 g protein, and 970 mL water 2) Monitor Propofol rate and need to adjust recs 3) Water flush per physician given renal status 4) Prealbumin q Monday/ 5) Bowel care per rx 6) Daily scaled weights 7) DM education as appropriate following extubation, A1c pending; verbal d/w mother and sister provided 07/22 Addendum: 07/22/23 at [address] Amended: Links added. Addendum: 07/22/23 at [address] Recommendations: 1) Given Propofol at 6.48 mL/hr (171 kcal/day), continuous Pivot 1.5 with 55 mL/hr goal rate to provide 1320 mL total volume/day, 1980 kcal, 124 g protein, and 970 mL water 2) Monitor Propofol rate and need to adjust recs 3) Water flush per physician given renal status 4) Prealbumin q Monday/ 5) Continue routine Thiamine, Folic acid, and MVI for EtOH hx 6) Monitor need for pancreatic enzymes-pt with chronic pancreatitis per EMR; amylase WNL, lipase low 7) Bowel care per rx 8) Daily scaled weights 9) DM education as appropriate following extubation, A1c pending; verbal d/w mother and sister provided 07/22
[2023-07-22] MEDS ORDERED: LOPE2CAP PO (12:09)
[2023-07-22] MEDS ORDERED: AMYL1CAP57 PO (12:09)
[2023-07-22] MEDS ORDERED: GABA300C PO (12:09)
[2023-07-22] MEDS ORDERED: ROPI2TAB53 PO (12:09)
[2023-07-22] MEDS ORDERED: SPIR25TA5 PO (12:09)
[2023-07-22] MEDS ORDERED: AMYL1CAP56 PO ×2 (12:09→12:14)
[2023-07-22] MEDS ORDERED: FOLI1TAB27 PO (12:09)
[2023-07-22] MEDS ORDERED: FURO20TA4 PO (12:09)
[2023-07-22] MEDS ORDERED: ESCI-8 PO (12:09)
[2023-07-22] MEDS ORDERED: INSU100V9 SQ (12:09)
[2023-07-22] MEDS ORDERED: INSU100V11 SQ (12:09)
[2023-07-22] MEDS ORDERED: LEVE500T PO (12:09)
[2023-07-22] MEDS ORDERED: LISI5TAB22 PO (12:09)
[2023-07-22] MEDS ORDERED: DIPH-522 PO (12:09)
[2023-07-22] MEDS ORDERED: ATOR10TA70 PO (12:18)
[2023-07-22 12:27] LABS: UA EOSINOPHILS NO EOS /HPF
[2023-07-22] MEDS ORDERED: vancomycin/NS 1 GM ADD-VANTAGE 250 ML X 1 DOSE IV ONE (13:00)
[2023-07-22] MEDS: insulin regular, human U-100 3ml vial - multi-dose SQ SCH ×2 (14:57→20:36)
[2023-07-22 16:46] LABS: HEMATOCRIT 19.5 % (42.0-52.0); HEMOGLOBIN 6.4 g/dl (14.0-17.9)
[2023-07-22 17:38] LABS: HEPATITIS C VIRUS ANTIBODY Non Reactive (Non Reactive)
--- NOTE | 2023-07-22 19:00 | NUR ---
Received report from FARHANA Russell; pt lightly sedated w/diprivan and fentanyl, will wake up, CHOW, follows simple commands; remains on bicarb gtt, no presssors; rodriguez w/adeq very pale yellow urine; TF via OG.
[2023-07-22] MEDS ORDERED: LORazepam 2 mg/ml vial IV PRN (19:15)
[2023-07-22] MEDS ORDERED: LORazepam 1 MG tablet PO PRN (19:15)
[2023-07-22] MEDS: famotidine/PF 10 mg/ml inj IV SCH (20:16)
[2023-07-22] MEDS: insulin glargine (Lantus) pen - multi-dose SQ SCH (20:37)
[2023-07-22] MEDS: propofol 1000mg/100ml bottle 100 ML IV SCH (21:29)
[2023-07-23] VITALS (37 sets, daily range): BP systolic 107–138; BP diastolic 56–80; PULSE 69–95; RESP 15–26; O2SAT 90–98
[2023-07-23] MEDS: piperacillin/tazo 4.5gm/100ml 100 ML IV SCH ×4 (00:07→23:52)
[2023-07-23] MEDS: NORepinephrine 8mg/ 250ml NS 250 ML IV SCH (00:23)
--- NOTE | 2023-07-23 01:00 | NUR ---
Pt w/2 large mucous, liquid stools; rectal tube placed w/o difficult. no change in VS.
[2023-07-23] MEDS: methylPREDNISolone sod succ 125mg/2ml vial IV SCH ×4 (02:02→19:44)
[2023-07-23] MEDS: insulin regular, human U-100 3ml vial - multi-dose SQ SCH ×3 (02:05→14:50)
[2023-07-23 02:37] LABS: BASOPHILS % (AUTO) 0.1 % (0-1); EOSINOPHILS % (AUTO) 0 % (0-6); LYMPHOCYTES # (AUTO) 0.3 X10'3 (1.1-4.8); LYMPHOCYTES % (AUTO) 1.7 % (21-51); MEAN CORPUSCULAR HEMOGLOBIN 29.1 PG (27.0-31.0); MEAN CORPUSCULAR HGB CONC 32.7 g/dL (33.0-36.5); MEAN CORPUSCULAR VOLUME 88.9 FL (78-98); MEAN PLATELET VOLUME 9.5 FL (7.4-10.4); MONOCYTES # (AUTO) 0.4 X10'3 (0-0.9); MONOCYTES % (AUTO) 2.8 % (2-12); NEUTROPHILS # (AUTO) 15.1 X10'3 (1.8-7.7); NEUTROPHILS % (AUTO) 95.4 % (42-75); PLATELET COUNT 367 X10'3 (140-440); RED CELL DISTRIBUTION WIDTH 12.9 % (11.5-14.5); WHITE BLOOD COUNT 15.8 X10'3 (4.5-11.0)
[2023-07-23 02:43] LABS: HEMATOCRIT 21.3 % (42.0-52.0)
[2023-07-23 02:46] LABS: INR 1.4 INR; PROTHROMBIN TIME 14.4 SECONDS (9.0-12.0)
[2023-07-23 02:53] LABS: ALBUMIN 1.5 G/DL (3.4-5.0); AMYLASE 39 U/L (25-115); ANION GAP 18 (8-16); BLOOD UREA NITROGEN 81 MG/DL (7-18); BUN/CREATININE RATIO 11.9 (10.0-20.0); CALCIUM 6.9 MG/DL (8.5-10.1); CHLORIDE 94 MMOL/L (99-107); GLUCOSE 255 MG/DL (70-104); LIPASE 7 U/L (16-77); PHOSPHORUS 7.8 MG/DL (2.3-4.5); POTASSIUM 3.4 MMOL/L (3.5-5.1); SODIUM 132 MMOL/L (135-145); TOTAL CARBON DIOXIDE 20.2 MMOL/L (24-32); VANCOMYCIN,RANDOM 26.7 ug/mL (20.0-30.0); eCRCL 11 ML/MIN; eGFR 9 ML/MIN
[2023-07-23 03:14] LABS: ABG BASE EXCESS -4.8 mmol/L (-2.0-2.0); ABG HCO3 19.7 mmol/L (22.0-26.0); ABG OXYGEN SATURATION 99.1 % (94-97); ABG PCO2 (T) 33.3 mmHg (35.0-48.0); ABG PO2 (T) 160.4 mmHg (75.0-100.0); FCOHb 0.2 % (0.0-3.9); FHHb 0.9 % (0.0-5.0); FMetHb 0.3 % (0.0-1.5); FO2Hb 98.6 % (94-97); PEEP 10 cm H2O; RESPIRATORY RATE 16 b/min; TIDAL VOLUME 450 mL
--- NOTE | 2023-07-23 06:00 | NUR ---
Patient in room ICU 2041. I have received report from Celia DELCID and had the opportunity to ask questions and assume patient care.
--- NOTE | 2023-07-23 06:39 | NUR ---
Small amt of tube feeding in back of mouth/throat; OG repositioned down further; vent changed per RT. AM labs unremarkable. Report given to FARHANA Becerra; questions answered.
[2023-07-23] MEDS: sodium bicarbonate (8.4%) inj. 150 MEQ in dextrose 5%-water 1,000 ML IV SCH ×2 (06:44→17:29)
[2023-07-23] MEDS: VANCOMYCIN LEVEL IV SCH (07:00)
--- NOTE | 2023-07-23 07:00 | NUR ---
Informed Dr. Case of H&H 7.0.3. No new orders at this time.
[2023-07-23] MEDS ORDERED: ringers solution, lacted 1,000 ML IV ONE (07:35)
[2023-07-23] MEDS: K and/or MAG REPLACEMENT MC SCH ×2 (08:00→20:00)
[2023-07-23] MEDS: folic acid 1mg/0.2ml inj IV SCH (08:01)
[2023-07-23] MEDS: famotidine/PF 10 mg/ml inj IV SCH (08:01)
[2023-07-23] MEDS: thiamine 100mg/ml 2ml inj. IV SCH ×2 (08:02→13:06)
[2023-07-23] MEDS: multivitamins, therapeutics tablet PO SCH (08:02)
[2023-07-23] MEDS: heparin, porcine 5000 units/ml vial SQ SCH ×2 (08:03→19:44)
[2023-07-23] MEDS: POTASSIUM BICARB 20meq eff tab 20 MEQ TABLET.EFF PO SCH (10:12)
[2023-07-23 11:05] LABS: % IRON SATURATION 21 % (11-46); IRON 22 UG/DL (53-167); TOTAL IRON BINDING CAPACITY 103 UG/DL (259-388)
[2023-07-23 11:32] LABS: FERRITIN 303 NG/ML (26-388)
[2023-07-23] MEDS: propofol 1000mg/100ml bottle 100 ML IV SCH (12:12)
[2023-07-23] MEDS ORDERED: famotidine/PF 10 mg/ml inj IV SCH (13:49)
[2023-07-23] MEDS: FENTANYL-0.9 % NACL/PF 100 ML IV PRN (16:13)
--- NOTE | 2023-07-23 18:13 | NUR ---
Problems reprioritized. Patient report given, questions answered & plan of care reviewed with Yarely DELCID.
[2023-07-23] MEDS: mineral oil/petrolatum ophthal oint EACHEYE SCH ×2 (19:44→23:52)
[2023-07-23] MEDS: insulin glargine (Lantus) pen - multi-dose SQ SCH (21:48)
[2023-07-24] VITALS (40 sets, daily range): BP systolic 109–163; BP diastolic 55–94; PULSE 63–77; RESP 15–22; TEMP 97.4–97.6; O2SAT 85–99
[2023-07-24] MEDS: NORepinephrine 8mg/ 250ml NS 250 ML IV SCH (00:41)
[2023-07-24] MEDS: FENTANYL-0.9 % NACL/PF 100 ML IV PRN ×2 (01:56→13:30)
[2023-07-24] MEDS: propofol 1000mg/100ml bottle 100 ML IV SCH ×3 (02:02→17:16)
[2023-07-24] MEDS: insulin regular, human U-100 3ml vial - multi-dose SQ SCH ×3 (02:14→13:12)
[2023-07-24 02:50] LABS: BASOPHILS % (AUTO) 0 % (0-1); EOSINOPHILS % (AUTO) 0 % (0-6); LYMPHOCYTES # (AUTO) 0.3 X10'3 (1.1-4.8); LYMPHOCYTES % (AUTO) 1.4 % (21-51); MEAN CORPUSCULAR HEMOGLOBIN 29.2 PG (27.0-31.0); MEAN CORPUSCULAR HGB CONC 32.7 g/dL (33.0-36.5); MEAN CORPUSCULAR VOLUME 89.4 FL (78-98); MEAN PLATELET VOLUME 9.2 FL (7.4-10.4); MONOCYTES # (AUTO) 0.4 X10'3 (0-0.9); MONOCYTES % (AUTO) 1.7 % (2-12); NEUTROPHILS # (AUTO) 19.8 X10'3 (1.8-7.7); NEUTROPHILS % (AUTO) 96.9 % (42-75); PLATELET COUNT 372 X10'3 (140-440); RED BLOOD COUNT 2.29 X10'6 (4.70-6.10); RED CELL DISTRIBUTION WIDTH 13.1 % (11.5-14.5); WHITE BLOOD COUNT 20.5 X10'3 (4.5-11.0)
[2023-07-24 02:55] LABS: HEMATOCRIT 20.5 % (42.0-52.0); HEMOGLOBIN 6.7 g/dl (14.0-17.9)
[2023-07-24 03:00] LABS: INR 1.2 INR; PROTHROMBIN TIME 12.3 SECONDS (9.0-12.0)
[2023-07-24] MEDS: VANCOMYCIN LEVEL IV SCH (03:00)
[2023-07-24 03:05] LABS: ALBUMIN 1.4 G/DL (3.4-5.0); AMYLASE 37 U/L (25-115); ANION GAP 16 (8-16); BLOOD UREA NITROGEN 89 MG/DL (7-18); CALCIUM 6.7 MG/DL (8.5-10.1); CHLORIDE 91 MMOL/L (99-107); CREATININE 6.37 MG/DL (0.60-1.10); GLUCOSE 331 MG/DL (70-104); LIPASE 7 U/L (16-77); MAGNESIUM 1.4 MG/DL (1.5-2.4); PHOSPHORUS 8.4 MG/DL (2.3-4.5); SODIUM 132 MMOL/L (135-145); TOTAL CARBON DIOXIDE 25.2 MMOL/L (24-32); VANCOMYCIN,RANDOM 20.1 ug/mL (20.0-30.0); eCRCL 11 ML/MIN; eGFR 9 ML/MIN
[2023-07-24 03:13] LABS: ABG BASE EXCESS 1.1 mmol/L (-2.0-2.0); ABG PCO2 (T) 48.7 mmHg (35.0-48.0); ABG PH (T) 7.357 (7.340-7.440); ABG PO2 (T) 59.8 mmHg (75.0-100.0); FCOHb 0.2 % (0.0-3.9); FMetHb 0.3 % (0.0-1.5); FO2Hb 90.5 % (94-97); MODE VENT - AC; PEEP 8 cm H2O; RESPIRATORY RATE 16 b/min; TIDAL VOLUME 450 mL; TOTAL HEMOGLOBIN 7.4 G/dl (14.0-17.9)
--- NOTE | 2023-07-24 03:33 | NUR ---
informed Dr. Fernandez of am lab values no orders received
[2023-07-24 03:35] LABS: PREALBUMIN 6.6 MG/DL (19-36)
[2023-07-24] MEDS: sodium bicarbonate (8.4%) inj. 150 MEQ in dextrose 5%-water 1,000 ML IV SCH (03:37)
[2023-07-24] MEDS: methylPREDNISolone sod succ 125mg/2ml vial IV SCH ×4 (03:41→21:59)
--- NOTE | 2023-07-24 03:52 | NUR ---
pt had multiple episodes of desating to the mid 80s requiring 100% boluses. fio2 increased to 55%
[2023-07-24] MEDS: mineral oil/petrolatum ophthal oint EACHEYE SCH ×5 (04:00→21:59)
--- NOTE | 2023-07-24 06:35 | NUR ---
Dr. Case in to see pt. Notified of low H/H and BUN/CR. Notified of desatting during noc and increased FI02 to 55%. No new orders received.
[2023-07-24] MEDS ORDERED: POTASSIUM BICARB 20meq eff tab 20 MEQ TABLET.EFF PO ONE (06:45)
--- NOTE | 2023-07-24 06:50 | NUR ---
RN notified Dr. Case of K+ 3.0 Order received.
[2023-07-24] MEDS: multivitamins, therapeutics tablet PO SCH (07:37)
[2023-07-24] MEDS: piperacillin/tazo 4.5gm/100ml 100 ML IV SCH ×2 (07:37→16:04)
[2023-07-24] MEDS: heparin, porcine 5000 units/ml vial SQ SCH ×2 (07:37→22:00)
[2023-07-24] MEDS: POTASSIUM BICARB 20meq eff tab 20 MEQ TABLET.EFF PO SCH (07:38)
[2023-07-24] MEDS: K and/or MAG REPLACEMENT MC SCH ×2 (07:38→20:00)
[2023-07-24] MEDS ORDERED: mannitol 12.5gm/50mL VIAL IV ONE (08:35)
[2023-07-24] MEDS ORDERED: EPOETIN ALFA-EPBX 20,000 UNIT/ML 1 ML MDV IV ONE (08:35)
[2023-07-24] MEDS ORDERED: albumin (Human) 5% 250ml 250 ML IV PRN (08:35)
[2023-07-24] MEDS ORDERED: heparin 1,000 units/ml 10ml inj IV ONE (08:35)
[2023-07-24] MEDS ORDERED: heparin 1,000unit/ml 10ml vial 10 ML IV ONE (08:35)
[2023-07-24] MEDS: EPOETIN ALFA-EPBX 20,000 UNIT/ML 1 ML MDV SQ SCH (08:39)
[2023-07-24] MEDS ORDERED: heparin 1,000 units/ml 10ml inj HE ONE (08:40)
[2023-07-24] MEDS ORDERED: dextrose 5%-lactated ringers 1,000 ML IV SCH (10:35)
[2023-07-24] MEDS: ringers solution, lacted 1,000 ML IV SCH ×2 (11:10→21:10)
[2023-07-24] MEDS ORDERED: calcium chloride 100 MG/1 ML inj IV ONE (11:10)
--- NOTE | 2023-07-24 11:30 | NUR ---
HD being set up.
--- NOTE | 2023-07-24 13:24 | NUR ---
PRESSURE ULCER EDUCATION: DEFINITION: A pressure ulcer is an area of skin that breaks down when you stay in one position too long. The constant pressure against the skin reduces the blood flow to that area and the affected tissue dies. CAUSES: "Being bedridden or in a wheelchair "Fragile skin "Having a chronic condition, such as diabetes or vascular disease "Inability to move certain parts of your body without assistance "Older age "Incontinence of urine or stool SYMPTOMS: "A reddened area that DOES NOT turn white when pressed on - this can be the beginning of a pressure ulcer "A blister, deep sore or a crater - these can be advanced pressure ulcers FIRST AID: "Relieve the pressure on this area "Keep the area clean and dry "Call your primary doctor if you see any of the above symptoms "DO NOT massage the area "DO NOT use a donut shaped or ring shaped pillow- these actually interfere with the blood flow and cause complications PREVENTION: "Check for pressure ulcers everyday "Change position at least every two hours to relieve pressure "Use items that help relieve pressure- pillows, sheepskin, foam padding, and powders. "Keep skin clean and dry "Eat healthy well balanced meals "Exercise daily IF YOU SEE ANY OF THESE SYMPTOMS WHILE IN THE HOSPITAL - TELL YOUR NURSE IMMEDIATELY. IF YOU SEE ANY OF THESE SYMPTOMS WHILE AT HOME OR HAVE ANY QUESTIONS OR CONCERNS ABOUT PRESSURE ULCERS - CALL YOUR PRIMARY DOCTOR IMMEDIATELY. Addendum: 07/24/23 at 1325 by Mikhail Newsome RN Amended: Links added.
[2023-07-24] MEDS: calcium chloride inj. 1,000 MG in NS 100ml IV soln (110ml) IV SCH ×2 (13:31→14:51)
[2023-07-24 14:54] LABS: A/G RATIO 0.6 (0.7-1.7); ALPHA-1-GLOBULIN 0.4 g/dL (0.0-0.4); BETA GLOBULIN 1.1 g/dL (0.7-1.3); GAMMA GLOBULIN 0.8 g/dL (0.4-1.8); GLOBULIN, TOTAL 3.3 g/dL (2.2-3.9); M-SPIKE Not Observed g/dL (Not Observed); PROTEIN, TOTAL, SERUM 5.3 g/dL (6.0-8.5)
[2023-07-24] MEDS ORDERED: famotidine/PF 10 mg/ml inj IV SCH (16:55)
--- NOTE | 2023-07-24 18:07 | NUR ---
Problems reprioritized. Patient report given, questions answered & plan of care reviewed with Destinee Diop RN.
--- NOTE | 2023-07-24 18:30 | NUR ---
I have received report and assumed care of pt, Pt resting in bed rise and fall of chest cavity equile and symmetrical, propofol in place for sedation and low dose fentanyl in place for pain control due to intubation.
[2023-07-24] MEDS ORDERED: LORazepam 1 MG tablet PO PRN (19:15)
[2023-07-24] MEDS: insulin glargine (Lantus) pen - multi-dose SQ SCH (23:44)
[2023-07-25] VITALS (35 sets, daily range): BP systolic 117–220; BP diastolic 67–136; PULSE 57–125; RESP 12–33; O2SAT 88–98
[2023-07-25 02:34] LABS: HEMATOCRIT 27.4 % (42.0-52.0); HEMOGLOBIN 9.2 g/dl (14.0-17.9); MEAN CORPUSCULAR HEMOGLOBIN 29.9 PG (27.0-31.0); MEAN CORPUSCULAR HGB CONC 33.5 g/dL (33.0-36.5); MEAN CORPUSCULAR VOLUME 89.2 FL (78-98); PLATELET COUNT 363 X10'3 (140-440); RED BLOOD COUNT 3.08 X10'6 (4.70-6.10); RED CELL DISTRIBUTION WIDTH 13.5 % (11.5-14.5); WHITE BLOOD COUNT 22.4 X10'3 (4.5-11.0)
[2023-07-25 02:35] LABS: ALBUMIN 1.5 G/DL (3.4-5.0); AMYLASE 43 U/L (25-115); ANION GAP 8 (8-16); BLOOD UREA NITROGEN 58 MG/DL (7-18); BUN/CREATININE RATIO 14.7 (10.0-20.0); CHLORIDE 99 MMOL/L (99-107); CREATININE 3.94 MG/DL (0.60-1.10); GLUCOSE 120 MG/DL (70-104); LIPASE 6 U/L (16-77); MAGNESIUM 1.6 MG/DL (1.5-2.4); PHOSPHORUS 4.7 MG/DL (2.3-4.5); POTASSIUM 3.4 MMOL/L (3.5-5.1); SODIUM 135 MMOL/L (135-145); TOTAL CARBON DIOXIDE 28.4 MMOL/L (24-32); VANCOMYCIN,RANDOM 14.6 ug/mL (20.0-30.0); eCRCL 21 ML/MIN; eGFR 16 ML/MIN
[2023-07-25] MEDS: insulin regular, human U-100 3ml vial - multi-dose SQ SCH ×2 (02:52→08:19)
[2023-07-25] MEDS: methylPREDNISolone sod succ 125mg/2ml vial IV SCH ×2 (02:54→08:04)
[2023-07-25] MEDS: VANCOMYCIN LEVEL IV SCH (03:00)
[2023-07-25 03:27] LABS: ABG BASE EXCESS 2.3 mmol/L (-2.0-2.0); ABG HCO3 26.5 mmol/L (22.0-26.0); ABG OXYGEN SATURATION 98.8 % (94-97); ABG PCO2 (T) 38.7 mmHg (35.0-48.0); ABG PH (T) 7.451 (7.340-7.440); FCOHb 0.1 % (0.0-3.9); FHHb 1.2 % (0.0-5.0); FMetHb 0.3 % (0.0-1.5); FO2Hb 98.4 % (94-97); MODE VENT - AC; PATIENT TEMPERATURE 36.6; PEEP 8 cm H2O; RESPIRATORY RATE 18 b/min; TIDAL VOLUME 450 mL; TOTAL HEMOGLOBIN 10.1 G/dl (14.0-17.9)
[2023-07-25 03:53] LABS: TOTAL CELLS COUNTED 100
[2023-07-25 03:55] LABS: PLATELET ESTIMATE NORMAL
[2023-07-25] MEDS: mineral oil/petrolatum ophthal oint EACHEYE SCH ×3 (04:43→08:05)
[2023-07-25 06:10] LABS: INR 1.1 INR; PROTHROMBIN TIME 12.2 SECONDS (9.0-12.0)
[2023-07-25] MEDS: ringers solution, lacted 1,000 ML IV SCH ×2 (06:39→15:51)
--- NOTE | 2023-07-25 07:51 | NUR ---
RT at bedside to obtain weaning parameters for pt.
[2023-07-25] MEDS: K and/or MAG REPLACEMENT MC SCH ×2 (08:00→20:00)
[2023-07-25] MEDS ORDERED: thiamine 100mg tablet PO SCH (08:00)
[2023-07-25] MEDS ORDERED: folic acid 1mg tablet PO SCH (08:00)
[2023-07-25] MEDS: multivitamins, therapeutics tablet PO SCH (08:04)
[2023-07-25] MEDS: heparin, porcine 5000 units/ml vial SQ SCH ×2 (08:05→19:26)
[2023-07-25] MEDS: piperacillin/tazo 4.5gm/100ml 100 ML IV SCH ×2 (08:09→19:27)
[2023-07-25] MEDS ORDERED: acetaminophen 325mg/10.15ml oral unit dose solution PO PRN (08:50)
[2023-07-25] MEDS ORDERED: methylPREDNISolone sod succ/PF 40mg inj. IV SCH (08:52)
[2023-07-25] MEDS ORDERED: vancomycin inj 500 MG in normal saline 100ml IV soln 100 ML IV SCH (09:00)
[2023-07-25] MEDS: POTASSIUM BICARB 20meq eff tab 20 MEQ TABLET.EFF PO SCH (09:45)
--- NOTE | 2023-07-25 10:12 | NUR ---
Extubated to 4L nc per MD order. Pt. with Sp02 88%. RT at bedside.
--- NOTE | 2023-07-25 10:17 | NUR ---
10L 02 via [employer].
[2023-07-25 10:33] LABS: TOTAL PROTEIN,URINE RANDOM 48.7 MG/DL
[2023-07-25] MEDS ORDERED: Potassium Cl 40 MEQ in sodium chloride 0.45% 500 ML IV ONE (11:00)
--- NOTE | 2023-07-25 11:17 | NUR ---
Reassessment: Per EMR pt received dialysis 07/24 with no fluid removed. Pt just extubated this morning therefore TF has been discontinued. Pt NPO at this time, pending BSS with ST who has already been consulted. Per RN pt with c/o hunger and requesting meat. Informed MD/multidisciplinary team that A1c lab draw was cancelled despite no A1c this admit with last A1c in EMR being 6.1% 03/30/16. Pending new orders for an A1c. Per RN pt with a rectal tube in place d/t large watery stools. Per I&O pt with 200 mL stool output 07/24. Will continue to follow closely and make recommendations as appropriate. Recommendations: 1) Advance to CHO controlled diet as medically indicated pending BSS with ST; Low fat/fiber diet if pt continues with frequent diarrhea 2) Monitor need for ONS/additional protein with diet advancement 3) Continue routine Thiamine, Folic acid, and MVI for EtOH hx 4) Monitor need for pancreatic enzymes-pt with chronic pancreatitis per EMR; amylase WNL, lipase low 5) Bowel care per rx 6) Weekly scaled weights 7) DM education as appropriate following extubation, A1c pending; verbal d/w mother and sister provided 07/22 Addendum: 07/25/23 at [address] Amended: Links added.
--- NOTE | 2023-07-25 11:25 | NUR ---
Pt. calm, supine in bed, tolerating ice chips. VSS.
--- NOTE | 2023-07-25 11:32 | NUR ---
Negro, Speech Therapist here to check pt. swallow ability,
[2023-07-25] MEDS: acetaminophen 325mg/10.15ml oral unit dose solution PO PRN (12:25)
--- NOTE | 2023-07-25 13:29 | NUR ---
Pt. c/o right knee pain. Medicated with Tylenol, ice applied, knee elevated. Pt. continues to cry and c/o.
[2023-07-25] MEDS: methylPREDNISolone sod succ/PF 40mg inj. IV SCH ×2 (13:35→19:26)
--- NOTE | 2023-07-25 13:42 | NUR ---
Ativan administered for constant crying and moaning, restlessness.
--- NOTE | 2023-07-25 15:06 | NUR ---
Pt. writhing around in bed c/o "my balls hurt." but pt. denies c/o when Resident Dr. Akers rounded just a few minutes ago.
--- NOTE | 2023-07-25 16:33 | NUR ---
RN called Dr. Manpreet morales pt. dorian, writhing in bed, delerium. Orders received.
[2023-07-25] MEDS: quetiapine 100mg tablet PO SCH ×2 (16:44→19:28)
[2023-07-25] MEDS: haloperidol lactate 5mg/ml inj IM PRN (16:45)
--- NOTE | 2023-07-25 16:57 | NUR ---
Pt. pulled rectal tube out. Nursing Supervior was made aware that pt. needs sitter. No sitter provided.
--- NOTE | 2023-07-25 17:30 | NUR ---
Leg immobilizer to right leg to help protect right femoral jose roberto. Sitter at bedside.
--- NOTE | 2023-07-25 17:39 | NUR ---
Dr. Case notified of pt's increased agitation and combativeness. Order received.
[2023-07-25] MEDS: dexmedetomidin/NS 400mcg/100ml 100 ML IV SCH ×2 (17:51→20:06)
--- NOTE | 2023-07-25 17:54 | NUR ---
Precedex started. Pt. remains combative. Addendum: 07/25/23 at 1755 by Rylee Horta RN Restraints placed on bilat. wrists for pt. and staff safety.
[2023-07-25] MEDS: LORazepam 2 mg/ml vial IV PRN (18:57)
--- NOTE | 2023-07-25 18:59 | NUR ---
assumed care of pt he continues to be combative, screaming, and thrashing in the bed. BP very elevated medicated with prn ativan
[2023-07-25] MEDS ORDERED: haloperidol lactate 5mg/ml inj IVH ONE (20:00)
--- NOTE | 2023-07-25 20:08 | NUR ---
informed Dr. Lowe of pts agitation, combativeness.and vital signs. order received
[2023-07-25] MEDS: insulin glargine (Lantus) pen - multi-dose SQ SCH (20:35)
--- NOTE | 2023-07-25 20:49 | NUR ---
after 5 mg haldol IV, pt continues to yell out but is visibly calmer. bp still elevated 198/125
[2023-07-26] VITALS (33 sets, daily range): BP systolic 132–187; BP diastolic 76–108; PULSE 66–116; RESP 11–27; O2SAT 85–99
[2023-07-26] MEDS: dexmedetomidin/NS 400mcg/100ml 100 ML IV SCH ×5 (00:13→21:50)
[2023-07-26] MEDS: haloperidol lactate 5mg/ml inj IM PRN (01:07)
[2023-07-26] MEDS: methylPREDNISolone sod succ/PF 40mg inj. IV SCH ×4 (02:11→21:52)
[2023-07-26] MEDS ORDERED: labetalol 20mg/4ml (5mg/ml) syringe IV ONE (02:29)
--- NOTE | 2023-07-26 02:32 | NUR ---
contacted Dr. Lowe regarding bp orders received
[2023-07-26] MEDS: ringers solution, lacted 1,000 ML IV SCH ×3 (07:19→23:10)
[2023-07-26] MEDS: heparin, porcine 5000 units/ml vial SQ SCH ×2 (07:22→21:51)
[2023-07-26] MEDS: piperacillin/tazo 4.5gm/100ml 100 ML IV SCH ×2 (07:23→21:50)
[2023-07-26] MEDS: EPOETIN ALFA-EPBX 20,000 UNIT/ML 1 ML MDV SQ SCH (08:00)
[2023-07-26] MEDS: K and/or MAG REPLACEMENT MC SCH ×2 (08:00→20:00)
[2023-07-26 10:40] LABS: BASOPHILS % (AUTO) 0.1 % (0-1); EOSINOPHILS % (AUTO) 0 % (0-6); HEMATOCRIT 30.8 % (42.0-52.0); HEMOGLOBIN 9.9 g/dl (14.0-17.9); LYMPHOCYTES # (AUTO) 0.7 X10'3 (1.1-4.8); LYMPHOCYTES % (AUTO) 2.4 % (21-51); MEAN CORPUSCULAR HEMOGLOBIN 29.5 PG (27.0-31.0); MEAN CORPUSCULAR HGB CONC 32.1 g/dL (33.0-36.5); MEAN CORPUSCULAR VOLUME 91.8 FL (78-98); MONOCYTES # (AUTO) 2.6 X10'3 (0-0.9); MONOCYTES % (AUTO) 9.3 % (2-12); NEUTROPHILS # (AUTO) 24.9 X10'3 (1.8-7.7); NEUTROPHILS % (AUTO) 88.2 % (42-75); PLATELET COUNT 326 X10'3 (140-440); RED BLOOD COUNT 3.36 X10'6 (4.70-6.10); RED CELL DISTRIBUTION WIDTH 13.9 % (11.5-14.5)
[2023-07-26 10:41] LABS: WHITE BLOOD COUNT 28.2 X10'3 (4.5-11.0)
[2023-07-26 11:03] LABS: PLATELET ESTIMATE NORMAL; TOTAL CELLS COUNTED 100
[2023-07-26 11:09] LABS: ALANINE AMINOTRANSFERASE 13 U/L (12-78); ALBUMIN 1.7 G/DL (3.4-5.0); ALBUMIN/GLOBULIN RATIO 0.4 (1.1-1.5); ALKALINE PHOSPHATASE 116 IU/L (46-116); ANION GAP 19 (8-16); ASPARTATE AMINO TRANSFERASE 35 U/L (10-37); BILIRUBIN,TOTAL 0.5 MG/DL (0.1-1.0); BLOOD UREA NITROGEN 72 MG/DL (7-18); BUN/CREATININE RATIO 15.7 (10.0-20.0); CHLORIDE 100 MMOL/L (99-107); CREATININE 4.59 MG/DL (0.60-1.10); GLUCOSE 202 MG/DL (70-104); MAGNESIUM 1.5 MG/DL (1.5-2.4); POTASSIUM 3.7 MMOL/L (3.5-5.1); SODIUM 139 MMOL/L (135-145); TOTAL CARBON DIOXIDE 20.3 MMOL/L (24-32); eCRCL 18 ML/MIN; eGFR 13 ML/MIN
[2023-07-26] MEDS ORDERED: thiamine 100mg/ml 2ml inj. IV ONE (11:15)
[2023-07-26] MEDS ORDERED: folic acid 1mg/0.2ml inj IV ONE (11:15)
[2023-07-26] MEDS ORDERED: normal saline 1000ml 100 ML IV PRN (11:45)
[2023-07-26] MEDS ORDERED: EPOETIN ALFA-EPBX 20,000 UNIT/ML 1 ML MDV IV ONE (11:45)
[2023-07-26] MEDS ORDERED: heparin 1,000 units/ml 10ml inj HE ONE ×2 (11:50)
[2023-07-26] MEDS: MVI, adult No.4 with vit. K 10 ML in dextrose 5% water 500ml 500 ML IV SCH ×2 (12:15)
[2023-07-26] MEDS: quetiapine 100mg tablet PO SCH ×2 (12:18→21:50)
[2023-07-26] MEDS: famotidine 20mg tablet PO SCH (12:19)
[2023-07-26 12:41] LABS: FREE T4 (FREE THYROXINE) 0.85 NG/DL (0.73-1.40); THYROID STIMULATING HORMONE 4.1 ulU/ml (0.34-4.50)
[2023-07-26] MEDS: insulin regular, human U-100 3ml vial - multi-dose SQ SCH ×3 (13:52→22:38)
[2023-07-26] MEDS ORDERED: FENTANYL-0.9 % NACL/PF 100 ML IV PRN (14:00)
[2023-07-26 15:32] LABS: HIV ANTIBODY 1&2 RAPID NON-REACTIVE (Neg)
[2023-07-26 15:36] LABS: HBSAG SCREEN Negative (Negative)
[2023-07-26] MEDS: labetalol 20mg/4ml (5mg/ml) syringe IV PRN (17:18)
--- NOTE | 2023-07-26 18:35 | NUR ---
I have received report and assumed care of pt. Pt resting in bed precedex in place to decrease anxiety, bedside POP SINGER in place to assure safety
[2023-07-26] MEDS: insulin glargine (Lantus) pen - multi-dose SQ SCH (22:37)
[2023-07-27] VITALS (35 sets, daily range): BP systolic 136–195; BP diastolic 81–125; PULSE 64–107; RESP 16–33; O2SAT 90–99
[2023-07-27] MEDS: dexmedetomidin/NS 400mcg/100ml 100 ML IV SCH ×6 (02:23→21:25)
--- NOTE | 2023-07-27 06:30 | NUR ---
Assumed care of pt after receiving report. DIRECTOR OF CULTURE at bedside for safety.
[2023-07-27] MEDS: haloperidol lactate 5mg/ml inj IM PRN (06:49)
[2023-07-27 06:59] LABS: BASOPHILS % (AUTO) 0.1 % (0-1); EOSINOPHILS # (AUTO) 0.3 X10'3 (0-0.9); EOSINOPHILS % (AUTO) 1.6 % (0-6); HEMATOCRIT 29.7 % (42.0-52.0); HEMOGLOBIN 9.7 g/dl (14.0-17.9); LYMPHOCYTES # (AUTO) 1.6 X10'3 (1.1-4.8); LYMPHOCYTES % (AUTO) 7.6 % (21-51); MEAN CORPUSCULAR HEMOGLOBIN 29.8 PG (27.0-31.0); MEAN CORPUSCULAR HGB CONC 32.6 g/dL (33.0-36.5); MEAN CORPUSCULAR VOLUME 91.4 FL (78-98); MONOCYTES % (AUTO) 9.4 % (2-12); NEUTROPHILS # (AUTO) 17.4 X10'3 (1.8-7.7); NEUTROPHILS % (AUTO) 81.3 % (42-75); PLATELET COUNT 305 X10'3 (140-440); RED BLOOD COUNT 3.25 X10'6 (4.70-6.10); RED CELL DISTRIBUTION WIDTH 13.5 % (11.5-14.5); WHITE BLOOD COUNT 21.4 X10'3 (4.5-11.0)
--- NOTE | 2023-07-27 07:00 | NUR ---
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
[2023-07-27 07:13] LABS: ALANINE AMINOTRANSFERASE 19 U/L (12-78); ALBUMIN 1.6 G/DL (3.4-5.0); ALBUMIN/GLOBULIN RATIO 0.4 (1.1-1.5); ALKALINE PHOSPHATASE 103 IU/L (46-116); ANION GAP 11 (8-16); ASPARTATE AMINO TRANSFERASE 24 U/L (10-37); BILIRUBIN,TOTAL 0.4 MG/DL (0.1-1.0); BLOOD UREA NITROGEN 81 MG/DL (7-18); BUN/CREATININE RATIO 16.4 (10.0-20.0); CALCIUM 7.6 MG/DL (8.5-10.1); CHLORIDE 101 MMOL/L (99-107); CREATININE 4.95 MG/DL (0.60-1.10); GLUCOSE 231 MG/DL (70-104); MAGNESIUM 1.6 MG/DL (1.5-2.4); PHOSPHORUS 5.3 MG/DL (2.3-4.5); POTASSIUM 3.7 MMOL/L (3.5-5.1); PREALBUMIN 14.7 MG/DL (19-36); SODIUM 137 MMOL/L (135-145); TOTAL CARBON DIOXIDE 24.9 MMOL/L (24-32); TOTAL PROTEIN 5.7 G/DL (6.4-8.2); eCRCL 17 ML/MIN; eGFR 12 ML/MIN
[2023-07-27] MEDS: K and/or MAG REPLACEMENT MC SCH ×2 (08:00→20:00)
[2023-07-27] MEDS: labetalol 20mg/4ml (5mg/ml) syringe IV PRN (09:11)
[2023-07-27] MEDS: thiamine 100mg/ml 2ml inj. IV SCH (09:13)
[2023-07-27] MEDS: heparin, porcine 5000 units/ml vial SQ SCH ×2 (09:15→21:19)
[2023-07-27] MEDS: folic acid 1mg/0.2ml inj IV SCH (09:18)
[2023-07-27] MEDS: piperacillin/tazo 4.5gm/100ml 100 ML IV SCH ×2 (09:20→21:21)
--- NOTE | 2023-07-27 09:20 | NUR ---
Pt's SpO2 drop to 80's and HF O2 was changed to NRB. Pt was using increased energy secondary to agitation causing respiratory distress. RT Marques was called and gave pt a neb tx which helped pt to breath better and become calm. The HD RN is setting up to dialyze pt. Pt is resting comfortably now. A new SL was inserted by Ashly DELCID after pt pulled the KENJI SL out w/ agitation.
[2023-07-27] MEDS: MVI, adult No.4 with vit. K 10 ML in dextrose 5% water 500ml 500 ML IV SCH ×2 (09:21)
[2023-07-27] MEDS: quetiapine 100mg tablet PO SCH ×2 (09:25→21:18)
[2023-07-27] MEDS: ringers solution, lacted 1,000 ML IV SCH ×2 (09:34→19:19)
[2023-07-27] MEDS: insulin Lispro (HumaLOG) vial - multi-dose SQ SCH ×3 (10:29→15:43)
--- NOTE | 2023-07-27 11:13 | NUR ---
Reassessment: An A1c was obtained, currently >12.0%, however pt not appropriate for DM education at this time as pt A/O x 2 and confused per EMR and pt agitated per RN. Pt s/p BSS 07/[address] rec[address] pureed food with thin liquids with liquid texture digression to nectar thick at f/u BSS today. Pt documented with 100% PO intake of lunch down to 75% PO intake of protein only at dinner 07/26. Per verbal d/w RN pt ate 100% of breakfast today with the exception of hot cereal. LBM 07/26 with 220 mL stool output per I&O. Will continue to follow and monitor need for nutrition intervention pending trends in PO intake. Recommendations: 1) Continue pureed diet with nectar thick liquids per ST recs; consider adding CHO controlled diet, low fat/fiber diet if pt continues with frequent diarrhea 2) Monitor need for ONS/additional protein 3) Continue routine Thiamine, Folic acid, and MVI for EtOH hx 4) Monitor need for pancreatic enzymes-pt with chronic pancreatitis per EMR; amylase WNL, lipase low 5) Bowel care per rx 6) Weekly scaled weights 7) DM education as appropriate, A1c >12.0%; verbal d/w mother and sister provided 07/22 Addendum: 07/27/23 at [address] Amended: Links added.
--- NOTE | 2023-07-27 11:30 | NUR ---
Pt is tolerating HD and HF O2 well. VSS. HD RN remains at bedside.
[2023-07-27] MEDS ORDERED: EPOETIN ALFA-EPBX 20,000 UNIT/ML 1 ML MDV IV ONE (13:00)
--- NOTE | 2023-07-27 13:15 | NUR ---
Dr. Felder at bedside and updated.
[2023-07-27] MEDS: ipratropium/albuterol 3ml nebule IH SCH ×2 (13:38→18:35)
--- NOTE | 2023-07-27 13:45 | NUR ---
Pt eating his lunch after HD. His mother giving minimal assistance. Addendum: 07/27/23 at 1634 by Delphine POLO RN Bilateral wrist restraints were loosened for pt to feed himself.
--- NOTE | 2023-07-27 15:35 | NUR ---
Wrist restraints removed/discontinued. Pt continues to rest and is cooperative.
--- NOTE | 2023-07-27 16:35 | NUR ---
Dr. Prescott given a pt update at bedside.
--- NOTE | 2023-07-27 17:20 | NUR ---
Pt had soft brown/orange stool that did not go through the rectal tube. Tube was deflated and removed.
--- NOTE | 2023-07-27 18:34 | NUR ---
Report given to ANNY RN via SBAR.
--- NOTE | 2023-07-27 18:35 | NUR ---
I have received report and assumed care of pt. Pt resting in bed rise and fall of chest cavity equile and symmetrical. Pt resting in bed somewhat fidgety, Bedside CONCRETE PAVER in room for pt saftey. vs as charted.
[2023-07-27] MEDS: insulin glargine (Lantus) pen - multi-dose SQ SCH (21:00)
[2023-07-27] MEDS: diphenhydrAMINE 25mg capsule PO PRN (21:18)
--- NOTE | 2023-07-27 21:25 | NUR ---
lantus held per pts request as pt states he will drop his glucose too low if he takes Lantus when his blood sugar is less then 150.
[2023-07-28] VITALS (38 sets, daily range): BP systolic 132–189; BP diastolic 90–105; PULSE 68–91; RESP 2–28; O2SAT 88–100
[2023-07-28] MEDS: dexmedetomidin/NS 400mcg/100ml 100 ML IV SCH ×6 (00:13→17:49)
[2023-07-28] MEDS: haloperidol lactate 5mg/ml inj IM PRN ×2 (01:52→20:58)
[2023-07-28] MEDS: ipratropium/albuterol 3ml nebule IH SCH ×4 (01:58→20:46)
[2023-07-28] MEDS: ringers solution, lacted 1,000 ML IV SCH (05:10)
[2023-07-28 06:11] LABS: BASOPHILS % (AUTO) 0.1 % (0-1); EOSINOPHILS # (AUTO) 0.6 X10'3 (0-0.9); HEMATOCRIT 29.5 % (42.0-52.0); HEMOGLOBIN 9.7 g/dl (14.0-17.9); LYMPHOCYTES # (AUTO) 0.8 X10'3 (1.1-4.8); LYMPHOCYTES % (AUTO) 3.8 % (21-51); MEAN CORPUSCULAR HEMOGLOBIN 30.2 PG (27.0-31.0); MEAN CORPUSCULAR HGB CONC 32.9 g/dL (33.0-36.5); MONOCYTES # (AUTO) 1.7 X10'3 (0-0.9); MONOCYTES % (AUTO) 8.2 % (2-12); NEUTROPHILS # (AUTO) 17.5 X10'3 (1.8-7.7); NEUTROPHILS % (AUTO) 84.9 % (42-75); PLATELET COUNT 276 X10'3 (140-440); RED BLOOD COUNT 3.21 X10'6 (4.70-6.10); RED CELL DISTRIBUTION WIDTH 13.8 % (11.5-14.5); WHITE BLOOD COUNT 20.6 X10'3 (4.5-11.0)
[2023-07-28 06:14] LABS: ALANINE AMINOTRANSFERASE 13 U/L (12-78); ALBUMIN 1.7 G/DL (3.4-5.0); ALBUMIN/GLOBULIN RATIO 0.4 (1.1-1.5); ALKALINE PHOSPHATASE 94 IU/L (46-116); ANION GAP 8 (8-16); ASPARTATE AMINO TRANSFERASE 24 U/L (10-37); BILIRUBIN,TOTAL 0.4 MG/DL (0.1-1.0); BLOOD UREA NITROGEN 44 MG/DL (7-18); BUN/CREATININE RATIO 12.7 (10.0-20.0); CALCIUM 7.6 MG/DL (8.5-10.1); CHLORIDE 101 MMOL/L (99-107); CREATININE 3.46 MG/DL (0.60-1.10); GLUCOSE 88 MG/DL (70-104); MAGNESIUM 1.5 MG/DL (1.5-2.4); PHOSPHORUS 4.1 MG/DL (2.3-4.5); POTASSIUM 3.9 MMOL/L (3.5-5.1); SODIUM 136 MMOL/L (135-145); TOTAL CARBON DIOXIDE 26.8 MMOL/L (24-32); TOTAL PROTEIN 5.9 G/DL (6.4-8.2); eCRCL 24 ML/MIN; eGFR 19 ML/MIN
--- NOTE | 2023-07-28 06:30 | NUR ---
Assumed care of pt after report From ANNY RN. Pt is resting quietly and denies pain.
[2023-07-28] MEDS: K and/or MAG REPLACEMENT MC SCH ×2 (08:00→20:00)
[2023-07-28] MEDS ORDERED: VANCOMYCIN LEVEL IV ONE (08:30)
--- NOTE | 2023-07-28 08:30 | NUR ---
Pt has a sitter, who assisted pt to dangle for breakfast. Pt has eaten 100% of his meal.
[2023-07-28] MEDS: quetiapine 100mg tablet PO SCH ×2 (08:37→20:57)
[2023-07-28] MEDS: famotidine 20mg tablet PO SCH (08:37)
[2023-07-28] MEDS: heparin, porcine 5000 units/ml vial SQ SCH ×2 (08:38→20:57)
[2023-07-28] MEDS: thiamine 100mg/ml 2ml inj. IV SCH (08:39)
[2023-07-28] MEDS: piperacillin/tazo 4.5gm/100ml 100 ML IV SCH ×2 (08:39→20:56)
[2023-07-28] MEDS: MVI, adult No.4 with vit. K 10 ML in dextrose 5% water 500ml 500 ML IV SCH ×2 (08:39)
[2023-07-28] MEDS: folic acid 1mg/0.2ml inj IV SCH (08:39)
[2023-07-28] MEDS: insulin Lispro (HumaLOG) vial - multi-dose SQ SCH (09:39)
--- NOTE | 2023-07-28 10:00 | NUR ---
At approximately 0930, pt became short of breath and tired, so he was assisted to lying position. HF 15 L continues. He went right to sleep. SpO2 95-96%.
[2023-07-28] MEDS: EPOETIN ALFA-EPBX 20,000 UNIT/ML 1 ML MDV SQ SCH (10:07)
[2023-07-28] MEDS ORDERED: methylPREDNISolone SOD SUCC 1000 MG in D5W 50ml IVPB (58ML) IV STA ×2 (10:36→12:17)
--- NOTE | 2023-07-28 13:45 | NUR ---
Pt has been sleeping for several hours. Pt will be going to CT at 1400 w/ RN and tech, on monitor via bed.
[2023-07-28] MEDS ORDERED: methylPREDNISolone sod succ 125mg/2ml vial IV SCH (14:00)
--- NOTE | 2023-07-28 14:35 | NUR ---
Return from CT w/ tech. Precedex remained on during test, and pt was calm and tolerated it well. Pt's mother at bedside on his birthday.
[2023-07-28] MEDS ORDERED: heparin 1,000unit/ml 10ml vial 10 ML IV ONE (15:00)
[2023-07-28] MEDS ORDERED: heparin 1,000 units/ml 10ml inj IV ONE (15:00)
[2023-07-28] MEDS ORDERED: albumin (human) 25% 100ml IV 100 ML IV PRN (15:00)
--- NOTE | 2023-07-28 15:00 | NUR ---
Dr. Knox at bedside. Pt somnolent w/ some gurgling sounds. MD ordered NPO, HD to remove 4 L, and deep suctioning.
[2023-07-28] MEDS ORDERED: heparin 1,000 units/ml 10ml inj HE ONE ×2 (15:05)
--- NOTE | 2023-07-28 16:57 | NUR ---
At approx. 1630, pt became anxious when the HD RN began to attach tubing to HD cath. Precedex was increased and pt was medicated w/ Haldol. Pt is now feeling calm again, and the HD will begin shortly.
--- NOTE | 2023-07-28 18:24 | NUR ---
Report given to Cali DELCID.
[2023-07-28] MEDS: diphenhydrAMINE 25mg capsule PO PRN (22:27)
[2023-07-29] VITALS (45 sets, daily range): BP systolic 125–182; BP diastolic 68–114; PULSE 69–102; RESP 13–25; TEMP 99.3; O2SAT 84–98
[2023-07-29] MEDS: haloperidol lactate 5mg/ml inj IM PRN (01:02)
[2023-07-29] MEDS: diphenhydrAMINE 25mg capsule PO PRN ×2 (01:02→19:27)
[2023-07-29] MEDS: LORazepam 2 mg/ml vial IV PRN ×2 (02:29→22:12)
[2023-07-29] MEDS: dexmedetomidin/NS 400mcg/100ml 100 ML IV SCH ×5 (02:36→22:34)
[2023-07-29] MEDS: insulin Lispro (HumaLOG) vial - multi-dose SQ SCH ×4 (03:02→21:00)
[2023-07-29] MEDS: ipratropium/albuterol 3ml nebule IH SCH ×4 (03:03→20:30)
[2023-07-29 05:36] LABS: BASOPHILS % (AUTO) 0.2 % (0-1); EOSINOPHILS % (AUTO) 0 % (0-6); HEMATOCRIT 27.7 % (42.0-52.0); HEMOGLOBIN 9.1 g/dl (14.0-17.9); LYMPHOCYTES # (AUTO) 0.3 X10'3 (1.1-4.8); LYMPHOCYTES % (AUTO) 2.5 % (21-51); MEAN CORPUSCULAR HEMOGLOBIN 30.3 PG (27.0-31.0); MEAN CORPUSCULAR HGB CONC 32.9 g/dL (33.0-36.5); MEAN CORPUSCULAR VOLUME 92.1 FL (78-98); MEAN PLATELET VOLUME 9.4 FL (7.4-10.4); MONOCYTES # (AUTO) 0.5 X10'3 (0-0.9); MONOCYTES % (AUTO) 4.1 % (2-12); NEUTROPHILS % (AUTO) 93.2 % (42-75); PLATELET COUNT 271 X10'3 (140-440); RED BLOOD COUNT 3.01 X10'6 (4.70-6.10); RED CELL DISTRIBUTION WIDTH 13.7 % (11.5-14.5); WHITE BLOOD COUNT 12.9 X10'3 (4.5-11.0)
[2023-07-29 05:51] LABS: ALANINE AMINOTRANSFERASE 15 U/L (12-78); ALBUMIN 1.7 G/DL (3.4-5.0); ALBUMIN/GLOBULIN RATIO 0.4 (1.1-1.5); ALKALINE PHOSPHATASE 104 IU/L (46-116); ANION GAP 11 (8-16); ASPARTATE AMINO TRANSFERASE 24 U/L (10-37); BILIRUBIN,TOTAL 0.3 MG/DL (0.1-1.0); BLOOD UREA NITROGEN 42 MG/DL (7-18); CALCIUM 7.4 MG/DL (8.5-10.1); CHLORIDE 98 MMOL/L (99-107); GLUCOSE 311 MG/DL (70-104); MAGNESIUM 1.7 MG/DL (1.5-2.4); PHOSPHORUS 5.2 MG/DL (2.3-4.5); POTASSIUM 4.3 MMOL/L (3.5-5.1); SODIUM 132 MMOL/L (135-145); TOTAL CARBON DIOXIDE 23.4 MMOL/L (24-32); TOTAL PROTEIN 6.2 G/DL (6.4-8.2); TRIGLYCERIDES 55 MG/DL (20-135); eCRCL 28 ML/MIN; eGFR 22 ML/MIN
[2023-07-29] MEDS ORDERED: heparin 1,000 units/ml 10ml inj IV ONE (06:40)
[2023-07-29] MEDS ORDERED: heparin 1,000unit/ml 10ml vial 10 ML IV ONE (06:40)
[2023-07-29] MEDS ORDERED: EPOETIN ALFA-EPBX 20,000 UNIT/ML 1 ML MDV IV ONE (06:40)
[2023-07-29] MEDS ORDERED: heparin 1,000 units/ml 10ml inj HE ONE ×2 (06:45)
[2023-07-29] MEDS ORDERED: methylPREDNISolone SOD SUCC 1000 MG in D5W 50ml IVPB (58ML) IV SCH (08:00)
[2023-07-29] MEDS: K and/or MAG REPLACEMENT MC SCH ×2 (08:00→19:29)
[2023-07-29] MEDS: quetiapine 100mg tablet PO SCH ×2 (08:00→19:27)
[2023-07-29] MEDS: MVI, adult No.4 with vit. K 10 ML in dextrose 5% water 500ml 500 ML IV SCH ×2 (08:19)
[2023-07-29] MEDS: pantoprazole 40MG/NS 100ML BAG 100 ML IV SCH (08:20)
[2023-07-29] MEDS: folic acid 1mg/0.2ml inj IV SCH (08:21)
[2023-07-29] MEDS: thiamine 100mg/ml 2ml inj. IV SCH (08:22)
[2023-07-29] MEDS: heparin, porcine 5000 units/ml vial SQ SCH ×2 (08:24→19:28)
[2023-07-29] MEDS: piperacillin/tazo 4.5gm/100ml 100 ML IV SCH ×2 (08:25→19:28)
[2023-07-29] MEDS: methylPREDNISolone sod succ 1,000 MG in dextrose 5%-water 50ml 50 ML IV SCH (08:25)
--- NOTE | 2023-07-29 15:00 | NUR ---
Patient is having copious liquid stools, attempted to place fecal containment device, but it was not effective. Right groin site of Martinez was also exposed to stool. Suspecting C-diff since patient has had liquid stools for several days now. Sample send down for testing. Patient was cleaned and placed in brief, due to incontinence. Changed central line dressing to Martinez catheter after treating with chlorhexidine swabs.
--- NOTE | 2023-07-29 18:16 | NUR ---
Patient in room ICU 2041. I have received report from Drew DELCID and had the opportunity to ask questions and assume patient care.
[2023-07-29] MEDS ORDERED: diphenoxylate/atropine tablet (Lomotil) PO ONE (19:00)
[2023-07-29] MEDS: loperamide 2mg capsule PO PRN (19:27)
[2023-07-29] MEDS: acetaminophen 325mg/10.15ml oral unit dose solution PO PRN (19:27)
[2023-07-29] MEDS: insulin glargine (Lantus) pen - multi-dose SQ SCH (20:59)
[2023-07-29] MEDS ORDERED: LORazepam 2 mg/ml vial IV PRN (23:25)
[2023-07-30] VITALS (20 sets, daily range): BP systolic 119–172; BP diastolic 67–101; PULSE 72–114; RESP 15–24; O2SAT 90–96
[2023-07-30] MEDS: loperamide 2mg capsule PO PRN (01:32)
[2023-07-30 02:50] LABS: BASOPHILS % (AUTO) 0.1 % (0-1); EOSINOPHILS % (AUTO) 0 % (0-6); HEMOGLOBIN 9.2 g/dl (14.0-17.9); LYMPHOCYTES # (AUTO) 0.5 X10'3 (1.1-4.8); LYMPHOCYTES % (AUTO) 2.6 % (21-51); MEAN CORPUSCULAR HEMOGLOBIN 30.5 PG (27.0-31.0); MEAN CORPUSCULAR VOLUME 92.3 FL (78-98); MEAN PLATELET VOLUME 9.7 FL (7.4-10.4); MONOCYTES # (AUTO) 1.7 X10'3 (0-0.9); MONOCYTES % (AUTO) 9.9 % (2-12); NEUTROPHILS # (AUTO) 15.2 X10'3 (1.8-7.7); NEUTROPHILS % (AUTO) 87.4 % (42-75); PLATELET COUNT 281 X10'3 (140-440); RED BLOOD COUNT 3.03 X10'6 (4.70-6.10); RED CELL DISTRIBUTION WIDTH 13.5 % (11.5-14.5); WHITE BLOOD COUNT 17.3 X10'3 (4.5-11.0)
[2023-07-30 02:54] LABS: ALANINE AMINOTRANSFERASE 9 U/L (12-78); ALBUMIN 1.7 G/DL (3.4-5.0); ALBUMIN/GLOBULIN RATIO 0.4 (1.1-1.5); ALKALINE PHOSPHATASE 100 IU/L (46-116); ANION GAP 9 (8-16); ASPARTATE AMINO TRANSFERASE 33 U/L (10-37); BILIRUBIN,TOTAL 0.2 MG/DL (0.1-1.0); BLOOD UREA NITROGEN 33 MG/DL (7-18); BUN/CREATININE RATIO 12.5 (10.0-20.0); CALCIUM 7.4 MG/DL (8.5-10.1); CHLORIDE 97 MMOL/L (99-107); CREATININE 2.63 MG/DL (0.60-1.10); GLUCOSE 166 MG/DL (70-104); MAGNESIUM 1.6 MG/DL (1.5-2.4); PHOSPHORUS 3.7 MG/DL (2.3-4.5); POTASSIUM 3.5 MMOL/L (3.5-5.1); SODIUM 130 MMOL/L (135-145); TOTAL CARBON DIOXIDE 24.5 MMOL/L (24-32); TOTAL PROTEIN 6.1 G/DL (6.4-8.2); eCRCL 32 ML/MIN; eGFR 25 ML/MIN
[2023-07-30] MEDS: ipratropium/albuterol 3ml nebule IH SCH ×3 (02:56→15:05)
--- NOTE | 2023-07-30 06:30 | NUR ---
Problems reprioritized. Patient report given, questions answered & plan of care reviewed with Mariam DELCID.
--- NOTE | 2023-07-30 07:15 | NUR ---
Patient in room ICU 2041. I have received report from Maria E DELCID and had the opportunity to ask questions and assume patient care.
[2023-07-30] MEDS: K and/or MAG REPLACEMENT MC SCH (08:00)
[2023-07-30] MEDS: folic acid 1mg/0.2ml inj IV SCH (08:06)
[2023-07-30] MEDS: methylPREDNISolone sod succ 1,000 MG in dextrose 5%-water 50ml 50 ML IV SCH (08:06)
[2023-07-30] MEDS: pantoprazole 40MG/NS 100ML BAG 100 ML IV SCH (08:06)
[2023-07-30] MEDS: thiamine 100mg/ml 2ml inj. IV SCH (08:07)
[2023-07-30] MEDS: heparin, porcine 5000 units/ml vial SQ SCH (08:07)
[2023-07-30] MEDS: quetiapine 100mg tablet PO SCH (08:07)
[2023-07-30] MEDS: MVI, adult No.4 with vit. K 10 ML in dextrose 5% water 500ml 500 ML IV SCH ×2 (08:08)
[2023-07-30] MEDS: piperacillin/tazo 4.5gm/100ml 100 ML IV SCH (08:08)
[2023-07-30] MEDS: insulin Lispro (HumaLOG) vial - multi-dose SQ SCH (08:47)
[2023-07-30] MEDS ORDERED: furosemide 10 MG/1 ML 10ml inj IV ONE (10:20)
--- NOTE | 2023-07-30 12:36 | NUR ---
F/u 09/29: Pt continues on pureed nectar thick liquids per DEAN OF ADMISSIONS with great appetite, average PO intake of 82% x 7 meals including 100% for 5 meals this follow up. PO intake met 100% of estimated kcal needs and 88% of estimated protein needs. Noted 4 BM of diarrhea on 07/30 though receiving PRN Imodium per EMR. Will continue to monitor and make recommendations as appropriate Recommendations: 1) Continue pureed diet with nectar thick liquids per ST recs; consider adding CHO controlled diet, low fat/fiber diet if pt continues with frequent diarrhea 2) Monitor need for ONS/additional protein 3) Continue routine Thiamine, Folic acid, and MVI for EtOH hx 4) Monitor need for pancreatic enzymes-pt with chronic pancreatitis per EMR; amylase WNL, lipase low 5) Bowel care per rx 6) Weekly scaled weights 7) DM education as appropriate, A1c >12.0%; verbal d/w mother and sister provided 07/22 Addendum: 07/30/23 at [address] Amended: Links added.
--- NOTE | 2023-07-30 13:00 | NUR ---
Patient report given Yue DELCID. Patient going to room 4007.
--- NOTE | 2023-07-30 13:42 | NUR ---
Patient transferred with all belongings. Mom was at bedside and informed of transfer to room 4007. Tech at bedside to receive patient, Yue DELCID informed that patient arrived.
--- NOTE | 2023-07-30 14:00 | NUR ---
Assumed care of patient. Received report from Mariam DELCID from ICU. Mom at bedside.
--- NOTE | 2023-07-30 15:15 | NUR ---
Loud voices heard from patients room. Mom trying to leave and patient following her to the elevators. Patient loud and aggressive stating he is a 52 y/o man and can leave the hospital if he wants to. Patient on elevators nurse attempting to get patient back to room. Pt pulled IV out in the elevator. Blood dripping all over the floor. Security and house keeping called. Patient escorted back to room by security. Patient again states that he wants to leave and does not want anymore treatment. No belonging found in room. Hospital pants and gown given. Nursing jewelry department supervisor made aware and up on unit. Dr. Rollins paged. AMA papers signed by patient after nurse explained the health risks of leaving. Patient states he doesn't care and wants to leave. 1600 patient left [facility] AMA. Dr. Rollins notified.
[2023-07-30] MEDS ORDERED: thiamine 100mg tablet PO SCH (20:00)
[2023-07-31] MEDS ORDERED: pantoprazole 40mg Tablet.DR PO SCH (07:30)
[2023-07-31] MEDS ORDERED: multivitamins, therapeutics tablet PO SCH (08:00)
[2023-07-31] MEDS ORDERED: methylPREDNISolone sod succ 125mg/2ml vial IV SCH (08:00)
[2023-07-31] MEDS ORDERED: methylPREDNISolone SOD SUCC 1000 MG in D5W 50ml IVPB (58ML) IV SCH (08:00)
[2023-07-31] MEDS ORDERED: folic acid 1mg tablet PO SCH (08:00)
== END 2023-07-30 16:38 | disposition left against medical advice (07) | DRG 871 ==
LOC: ER 19:12 → ED HOLD 07-20 08:32 → EDBEDREQSVC 07-22 00:15 → ICU 2S 07-22 02:35 → ORTHO 4S 07-30 14:01
PROVIDERS: ADMIT Family Medicine; ATTEND Family Medicine
PROC: 5A1945Z Respiratory Ventilation, 24-96 Consecutive Hours (ICD-10-PCS; principal; 2023-07-22)
PROC: 0BH18EZ Insertion of Endotracheal Airway into Trachea, Via Natural or Artificial Opening Endoscopic (ICD-10-PCS; 2023-07-22)
PROC: 03HY32Z Insertion of Monitoring Device into Upper Artery, Percutaneous Approach (ICD-10-PCS; 2023-07-22)
PROC: 06HY33Z Insertion of Infusion Device into Lower Vein, Percutaneous Approach (ICD-10-PCS; 2023-07-24)
PROC: 30233N1 Transfusion of Nonautologous Red Blood Cells into Peripheral Vein, Percutaneous Approach (ICD-10-PCS; 2023-07-24)
PROC: 5A1D70Z Performance of Urinary Filtration, Intermittent, Less than 6 Hours Per Day (ICD-10-PCS; 2023-07-24)
PROC: 5A0945A Assistance with Respiratory Ventilation, 24-96 Consecutive Hours, High Flow/Velocity Cannula (ICD-10-PCS; 2023-07-25)
PROC: 5A1D70Z Performance of Urinary Filtration, Intermittent, Less than 6 Hours Per Day (ICD-10-PCS; 2023-07-26)
PROC: 5A1D70Z Performance of Urinary Filtration, Intermittent, Less than 6 Hours Per Day (ICD-10-PCS; 2023-07-28)
PROC: 5A1D70Z Performance of Urinary Filtration, Intermittent, Less than 6 Hours Per Day (ICD-10-PCS; 2023-07-29)
DX: A41.89 Other specified sepsis (principal); E11.10 Type 2 diabetes mellitus with ketoacidosis without coma; R65.21 Severe sepsis with septic shock; N17.0 Acute kidney failure with tubular necrosis; J80 Acute respiratory distress syndrome; J15.9 Unspecified bacterial pneumonia; J44.0 Chronic obstructive pulmonary disease with (acute) lower respiratory infection; F10.231 Alcohol dependence with withdrawal delirium; Z53.21 Procedure and treatment not carried out due to patient leaving prior to being seen by health care provider; F17.210 Nicotine dependence, cigarettes, uncomplicated; R68.0 Hypothermia, not associated with low environmental temperature; Z20.822 Contact with and (suspected) exposure to COVID-19; I10 Essential (primary) hypertension; K72.90 Hepatic failure, unspecified without coma; F15.10 Other stimulant abuse, uncomplicated; D64.9 Anemia, unspecified; F41.9 Anxiety disorder, unspecified; F32.A Depression, unspecified; G89.29 Other chronic pain; Z96.643 Presence of artificial hip joint, bilateral; Z79.4 Long term (current) use of insulin; Z79.899 Other long term (current) drug therapy
CPT/HCPCS: 36415; 36430; 36600; 71045; 71250; 74176; 76770; 80048; 80053; 80061; 80202; 80305; 80320; 80329; 81001; 82150; 82550; 82570; 82728; 82803; 82948; 83036; 83540; 83550; 83605; 83615; 83690; 83735; 83930; 83935; 84100; 84132; 84134; 84145; 84155; 84156; 84165; 84300; 84439; 84443; 84478; 84484; 84540; 84550; 85007; 85018; 85025; 85610; 85730; 86038; 86160; 86256; 86703; 86803; 86885; 86900; 86901; 86920; 87040; 87070; 87081; 87088; 87207; 87324; 87340; 87449; 87502; 87503; 87522; 87811; 92508; 92616; 93306; 94002; 94003; 94640; 94660; 94664; 94760; 94799; 99285; A4615; A4624; A5200; A6213; A6250; A6258; A6449; C1752; C1758; C9113; E1594; G0257; G0378; J0330; J1630; J1644; J1815; J1940; J1956; J2060; J2150; J2405; J2543; J2704; J2920; J2930; J3010; J3370; J3411; J3480; J3490; J7030; J7040; J7060; J7070; J7120; P9016; Q0163; Q4081; Q9967